=== PATIENT | male | born 1940 | race Caucasian/White ===

== ENCOUNTER → 2016-09-30 | Outpatient (CLI) | payer BC ==
[~2016-09-30] MED LIST: ALPR-411 PO; ASPI81TA28 PO; ATOR-22 PO; BNT10 PO; CARI350T28 PO; DICY10CA12 PO; FLM4 PO; IBUP-103 PO; METO25TA3 PO; MULT-190 PO; MULT-513 PO; PRLSR20 PO; PSYL48.59 PO; SALI0.6517 NAE; TAMS0.4C38 PO; VGR50 PO; VIAGRA PO
[2016-09-30 10:18] LABS: BASO % 0.3 %; BASO ABS # 0.03 K/uL (0-0.2); COMPLETE YES; EOS % 2.3 %; HEMATOCRIT 48.3 % (42-52); IG% 0.3 %; LYMPH % 23.7 %; LYMPH ABS # 2.15 K/uL (1.2-3.4); MEAN CORPUSCULAR HEMOGLOBIN 33.5 pg (25-34); MEAN CORPUSCULAR HGB CONC 36.4 g/dl (32-36); MEAN PLATELET VOLUME 12.3 fL (7.4-10.4); MONO % 9.2 %; NEUT % 64.2 %; PLATELET COUNT 174 K/uL (130-400); RED BLOOD COUNT 5.25 M/uL (4.7-6.1); WHITE BLOOD COUNT 9.07 K/uL (4.8-10.8)
[2016-09-30 10:31] LABS: ALT/SGPT 41 U/L (12-78); AST/SGOT 17 U/L (15-37); BLOOD UREA NITROGEN 13 mg/dl (7-18); BUN/CREATININE RATIO 14.8 (10-20); CALCIUM 9.3 mg/dl (8.5-10.1); CARBON DIOXIDE 28 mmol/L (21-32); CHLORIDE 106 mmol/L (98-107); CHOLESTEROL 149 mg/dl (0-200); CREATININE 0.88 mg/dl (0.60-1.40); GLUCOSE 135 mg/dl (70-99); POTASSIUM 4.5 mmol/L (3.5-5.1); SODIUM 142 mmol/L (136-145)
[2016-09-30 10:34] LABS: CHOLESTEROL/HDL RATIO 3.7; HDL CHOLESTEROL 40 mg/dl; LDL CHOLESTEROL CALCULATED 88 mg/dl; TRIGLYCERIDES 106 mg/dl (0-150); VERY LOW DENSITY LIPOPROT CALC 21 mg/dl
[2016-09-30 11:48] LABS: ESTIMATED AVERAGE GLUCOSE 123 mg/dl; HA1C FLAG Normal (Normal)
== END | disposition home or self-care (01) ==
LOC: C.LAB1850 09:07
PROVIDERS: ATTEND Internal Medicine
DX: E78.00 Pure hypercholesterolemia, unspecified (principal); R73.9 Hyperglycemia, unspecified

== ENCOUNTER → 2016-10-01 | Outpatient (CLI) | payer BC ==
--- NOTE | 2016-10-01 14:47 | DIAGNOSTIC IMAGING REPORT ---
CT HEAD COMBO CT DOSE: 1718.52 mGycm TECHNIQUE: Noncontrast images were obtained through the brain in the axial plane. The sequence was repeated following administration of 119 Optiray 320. HISTORY: Dizziness and vestibular hypofunction. COMPARISON: 2008, 2007. FINDINGS: No intra or extra-axial mass lesions are visualized. There is no CT evidence of acute cortical infarction. There is no evidence of midline shift. There is no acute hemorrhage. No calvarial fractures are visualized. There are moderate, progressive white matter hypodensities likely on a small vessel basis. There is mild ventricular prominence, proportional to degree of volume loss. There is no evidence of acute sinusitis There are no pathologically enhancing masses. 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 There are no findings to indicate dural venous sinus thrombosis. IMPRESSION: 1. Moderate, progressive white matter disease likely a small vessel basis 2. Pontine DVA 3. No evidence of intracranial mass Electronically signed by: Omar Valiente M.D. 10/01/2016 2:46 PM Dictated Date/Time: 10/01/2016 2:41 PM
== END | disposition home or self-care (01) ==
LOC: C.CTS 14:04
PROVIDERS: ATTEND Internal Medicine
DX: H83.2X3 Labyrinthine dysfunction, bilateral (principal); R42 Dizziness and giddiness; R90.82 White matter disease, unspecified; Q28.3 Other malformations of cerebral vessels

== ENCOUNTER → 2017-04-06 | Outpatient (CLI) | payer BC ==
[2017-04-06 09:59] LABS: BASO % 0.2 %; BASO ABS # 0.02 K/uL (0-0.2); COMPLETE YES; HEMATOCRIT 47.2 % (42-52); IG% 0.2 %; LYMPH % 27.4 %; LYMPH ABS # 2.29 K/uL (1.2-3.4); MEAN CELL VOLUME 93.3 fL (80-100); MEAN CORPUSCULAR HEMOGLOBIN 33.8 pg (25-34); MEAN CORPUSCULAR HGB CONC 36.2 g/dl (32-36); MEAN PLATELET VOLUME 12.6 fL (7.4-10.4); MONO % 8.1 %; NEUT % 62.1 %; PLATELET COUNT 140 K/uL (130-400); RED BLOOD COUNT 5.06 M/uL (4.7-6.1); WHITE BLOOD COUNT 8.35 K/uL (4.8-10.8)
[2017-04-06 10:26] LABS: URINE APPEARANCE CLEAR (CLEAR); URINE BILIRUBIN NEG (NEG); URINE COLOR YELLOW; URINE EPITHELIAL CELL AUTO 0-5 /lpf (0-5); URINE NITRITE NEG (NEG); URINE SPECIFIC GRAVITY 1.016 (1.000-1.030); UROBILINOGEN NEG (NEG)
[2017-04-06 10:33] LABS: MANUAL MICROSCOPIC REQUIRED? NO; REVIEW REQ? NO
[2017-04-06 10:53] LABS: ALT/SGPT 49 U/L (12-78); AST/SGOT 20 U/L (15-37); BLOOD UREA NITROGEN 20 mg/dl (7-18); BUN/CREATININE RATIO 22.4 (10-20); CALCIUM 8.9 mg/dl (8.5-10.1); CARBON DIOXIDE 30 mmol/L (21-32); CHLORIDE 105 mmol/L (98-107); CREATININE 0.87 mg/dl (0.60-1.40); GLUCOSE 134 mg/dl (70-99); POTASSIUM 4.5 mmol/L (3.5-5.1); SODIUM 140 mmol/L (136-145)
[2017-04-06 11:04] LABS: ESTIMATED AVERAGE GLUCOSE 128 mg/dl; HA1C FLAG Normal (Normal)
[2017-04-06 11:05] LABS: CHOLESTEROL 182 mg/dl (0-200); CHOLESTEROL/HDL RATIO 4.4; HDL CHOLESTEROL 41 mg/dl; LDL CHOLESTEROL CALCULATED 106 mg/dl; TRIGLYCERIDES 176 mg/dl (0-150); VERY LOW DENSITY LIPOPROT CALC 35 mg/dl
--- NOTE | 2017-04-10 12:18 | CODING QUERY MEDICAL NECESSITY ---
SUPPORTING DIAGNOSIS NEEDED A supporting diagnosis is required for the test/procedure performed on this patient in order for us to be reimbursed by the patient's insurance. Please provide a supporting diagnosis for the following test/procedure listed below next to the test name along with your signature. *If there is no additional diagnosis for this patient that would support the following test/procedure please document that below next to the test/procedure. Test(s)/Procedure(s) that require a supporting diagnosis: * HEMOGLOBIN A1C DIAGNOSIS: Provider Signature: Date: Thank you Alysha [facility] [employer] Once completed, please kindly fax back to [phone] For questions please call [phone]
== END | disposition home or self-care (01) ==
LOC: C.LAB1850 09:05
PROVIDERS: ATTEND Internal Medicine
DX: E78.00 Pure hypercholesterolemia, unspecified (principal)

== ENCOUNTER → 2017-06-11 | Outpatient (CLI) | payer BC ==
[~2017-06-11] MED LIST changes: +OPTIRAY 320 IV PRN
--- NOTE | 2017-06-11 10:08 | DIAGNOSTIC IMAGING REPORT ---
CT SCAN OF THE BRAIN COMBO CLINICAL HISTORY: Headache. COMPARISON STUDY: CT of the brain dated 10/01/2016. TECHNIQUE: Unenhanced axial CT scan of the brain is performed from the vertex to the skull base before and following the IV administration of 93 cc of Optiray 320. IV contrast was administered without complication. CT DOSE: 1228.53 mGy.cm FINDINGS: Brain parenchyma: There are age-related involutional changes noting moderate to advanced subcortical and periventricular microangiopathic change. There is no hemorrhage, mass effect, or evidence of acute territorial ischemia by CT criteria. No enhancing mass lesion is identified on the postcontrast images. A development venous anomaly is incidentally noted in the mark. Edmond-white matter is preserved. No extra-axial fluid collection is seen. Ventricles, sulci, cisterns: Prominent secondary to involutional change. Intracranial vasculature: There is atherosclerotic calcification of the cavernous carotid and vertebral arteries. Calvarium: Unremarkable. Sinuses and mastoids: Trace mucosal thickening is seen in the maxillary antra. The visualized paranasal sinuses are otherwise clear. The mastoid air cells are well pneumatized. Orbits: The bony orbits are grossly intact. IMPRESSION: Senescent changes as above with no hemorrhage, enhancing mass, or evidence of acute territorial ischemia by CT criteria. Electronically signed by: Alejandro Singh M.D. 06/11/2017 10:07 AM Dictated Date/Time: 06/11/2017 10:04 AM
== END | disposition home or self-care (01) ==
LOC: C.CTS 09:23
PROVIDERS: ATTEND Internal Medicine
DX: R51 Headache (principal); I67.2 Cerebral atherosclerosis

== ENCOUNTER → 2017-07-20 | Day surgery (SDC) | payer BC ==
[2017-06-22 09:04] VITALS: Ht 170.2 cm; Wt 113.6 kg
[~2017-07-20] VITALS: Ht 170.2 cm; Wt 113.6 kg
[~2017-07-20] MED LIST changes: +500ML BSS 0.3ML EPI 1:1000PF IRRIG ONE; +ACETAMINOPHEN 325 MG TAB PO PRN; +AMVISC PLUS 0.8ML SYRINGE INT OCU ONE; +ATROPINE SULFATE 0.1 MG/ML 5ML SYR IV PRN; -BNT10 PO; +BRIMONIDINE TART 0.2% OP SOLN PER DROP CHARGE ONE; +BROM0.0911 OPR; +BSS FLUSH ONE; -CARI350T28 PO; +CIPR0.3S OPR; +ENDOCOAT 0.85ML SYRINGE INT OCU ONE; +EpHEDrine SULFATE INJ 50 MG/ML AMP IV PRN; +EpINEphrine INJ 1MG/ML AMP 1 MG/ML AMP ONE; -FLM4 PO; +LACTATED RINGER'S 1000ML 500 ML IV SCH; +LIDOCAINE 4% OP SOLN DROP CHARGE ONE; +LIDOCAINE 4% OP SOLN DROP CHARGE OPR SCH; +LIDOCAINE HCL 1% MPF 2 ML VIAL ONE; +MIDAZOLAM HCL 1 MG/ML 2ML VIAL ONE; +MIX: 3ML BSS AND 1ML EPI(PF) TOP ONE; +MOXIFLOXACIN OPH SOLN PER DROP CHARGE ONE; +ONDANSETRON INJ 2 MG/ML 2 ML VIAL IV PRN; -OPTIRAY 320 IV PRN; +POVIDONE-IODINE OP SOLN 30 ML BTL ONE; +PRED1SUS3 OPR; +PROPARACAINE 0.5% OP SOLN PER DROP CHARGE OPR SCH; +PROPARACAINE HCL 0.5% OP SOLN 15 ML BTL OPR ONE; -SALI0.6517 NAE; +TOBRAMYCIN/DEXAMETHASONE OPH OINT PER APPLN CHARGE ONE; -VIAGRA PO
[2017-07-20] MEDS: PHENYLEPHRINE HCL 2.5% OP SOLN PER DROP CHARGE OPR SCH ×2 (10:40→10:45)
[2017-07-20] MEDS: TROPICAMIDE 1% OP SOLN PER DROP CHARGE OPR SCH ×2 (10:41→10:46)
[2017-07-20] MEDS: CYCLOPENTOLATE HCL 1% OP SOLN PER DROP CHARGE OPR SCH ×2 (10:42→10:47)
[2017-07-20] MEDS: KETOROLAC 0.5% OP SOLN PER DROP CHARGE OPR SCH ×2 (10:43→10:48)
[2017-07-20] MEDS: MOXIFLOXACIN OPH SOLN PER DROP CHARGE OPR SCH ×2 (10:44→10:54)
--- NOTE | 2017-07-20 11:53 | History & Physical Bridge - [place] ---
H&P Re-Evaluation Bridge Note: I have examined the patient, reviewed the History & Physical and in the interval since the performance of the History & Physical I have noted the following changes of clinical significance: No changes noted
--- NOTE | 2017-07-20 13:17 | Discharge Instructions-SurgCtr ---
Discharge Instructions Date of Service Jul 20, 2017. Visit Reason for Visit: Cataract Right Eye Discharge Discharge Diagnosis / Problem: cataract right eye Discharge Goals Goal(s): Improve function Activity Recommendations Activity Limitations: per Instructions/Follow-up section Lifting Limitations: no more than 5 pounds Anesthesia . Post Anesthesia Instructions: If you have had General Anesthesia or IV Sedation: * Do not drive today. * Resume driving when surgeon permits. * Do not make important decisions or sign legal documents today. * Call surgeon for: 1. Temperature elevations greater than 101 degrees F. 2. Uncontrollable pain. 3. Excessive bleeding. 4. Persistent nausea and vomiting. 5. Medication intolerance (nausea, vomiting or rash). * For nausea and vomiting use only clear liquids such as: tea, soda, bouillon until nausea subsides, then gradually increase diet as tolerated. * If you have any concerns or questions, call your surgeon's office. If physician is unavailable and it is an emergency, call 911 or go to the nearest emergency room. . Instructions / Follow-Up Instructions / Follow-Up ACTIVITY RECOMMENDATIONS: * Light activities * You may walk outside, read, watch television. * Mild irritation and blurred vision are common for the first few days, redness around the white part of the eye is common. MEDICATIONS: Resume previous medications unless instructed otherwise by your surgeon. Eye drops (today and tomorrow): Cipro - one drop in operative eye every 2 hours while awake Prednisolone 1% - one drop in operative eye every 2 hours while awake Bromfenac - one drop in operative eye once daily SPECIAL CARE INSTRUCTIONS: * If any problems or concerns, please call Dr. Downs's office at . * Keep plastic shield taped over eye to sleep at night. * Keep plastic shield taped over eye except to administer eye drops. * Keep plastic shield on until office visit the following day. FOLLOW UP VISIT: Follow-up with Dr. Downs in the [place] office as scheduled. If not already scheduled, please call the office at . Diet Recommendations Home Diet: resume previous diet Procedures Procedures Performed: Right Cataract Phacoemulsification With Intraocular Lens Implant; Toric Lens Pending Studies Studies pending at discharge: no Medical Emergencies . Who to Call and When: Medical Emergencies: If at any time you feel your situation is an emergency, please call 911 immediately. . Non-Emergent Contact Non-Emergency issues call your: Final Tester . . "Provider Documentation" section prepared by Kenneth Downs. .
--- NOTE | 2017-07-20 13:18 | [facility] Post Operative Brief Note ---
Immediate Operative Summary Operative Date Jul 20, 2017. Pre-Operative Diagnosis Right Eye Cataract Post-Operative Diagnosis Same Procedure(s) Performed Right Cataract Phacoemulsification With Intraocular Lens Implant; Toric Lens Surgeon Dr Downs Salesperson Burial Needs Surgeon(s) None Estimated Blood Loss 0ml Findings cataract right eye Fluids (cc crystalloids) see anesthesia record Specimens None Drains none Anesthesia local with sedation Complication(s) None Disposition Recovery Room / PACU
[2017-07-20 13:20] VITALS: TEMP 36.9
--- NOTE | 2017-07-20 13:35 | OPERATIVE REPORT ---
DATE OF OPERATION: 07/20/2017 PREOPERATIVE DIAGNOSES: Cataract and astigmatism, right eye. POSTOPERATIVE DIAGNOSES: Same. PROCEDURES PERFORMED: Phacoemulsification cataract extraction with Toric intraocular lens placement with the use of femtosecond laser and a Malyugin ring, right eye. COMPLICATIONS: None. ESTIMATED BLOOD LOSS: None. ANESTHESIA: Local with sedation. DESCRIPTION OF PROCEDURE: After an informed consent was obtained in the holding area, the patient was taken to the femtosecond laser room, where the right eye was docked with the laser. The capsulorrhexis and prechop of the lens was performed by the femtosecond laser. The patient was then undocked from the laser and taken to the operating room, where cardiac monitoring leads and oxygen by nasal cannula was administered by anesthesia. Gentle IV sedation was given and the patient's right eye was prepped and draped in the usual sterile fashion. A wire lid speculum was placed in the right eye and the operating microscope was swung into position. Using 0.12 forceps and a supersharp blade, a paracentesis port was made at the 11 o'clock position of the patient's right eye. 1% nonpreserved lidocaine was injected into the anterior chamber for anesthesia. A mixture of nonpreserved epinephrine and 3 mL of BSS was then injected into the eye to aid with pupillary dilation in this small pupil patient. A 2.0-mm keratome blade was then used to make a shelved clear cornea incision at the 9 o'clock position of the patient's right eye. The anterior chamber was then filled with EndoCoat and Amvisc. The pupil was rather small, so Malyugin ring was injected into the eye to widen the pupil. The premade capsulorrhexis was then removed from the eye and hydrodissection cannula was used to hydrodissect the lens nucleus away from the capsular bag. The phacoemulsification handpiece was then used in a stop and chop fashion to remove the lens nucleus. Irrigation aspiration handpiece was then used to remove the residual cortical material. The eye was then filled with Amvisc. The main incision enlarged slightly and an ARIANA VHG807, 22.0 Diopter intraocular lens was injected into the capsular bag. It was aligned along the 6-degree axis with dior made in the preop. The Malyugin ring was then removed from the eye. The primary incision was hydrated and irrigation-aspiration handpiece was used to remove the viscoelastic material from the eye. The wounds were noted to be watertight. The wire lid speculum was removed from the eye. Vigamox, brimonidine and TobraDex ointment were placed on the eye and the eye was shielded. The patient tolerated the procedure well and was taken to recovery area in stable condition. I attest to the content of the Intraoperative Record and any orders documented therein. Any exception s are noted below.
--- NOTE | 2017-07-20 13:36 | Anesthesia Progress Nt - [facility] ---
Anesthesia Post Op Note Date & Time Jul 20, 2017 at 13:36 Vital Signs Pain Intensity: 0 Vital Signs Past 12 Hours Date Time Temp Pulse Resp B/P (MAP) Pulse Ox O2 Delivery O2 Flow Rate FiO2 07/20/17 13:20 36.9 78 16 154/92 (112) 95 Room Air 07/20/17 12:42 81 18 147/89 97 07/20/17 12:32 88 18 164/101 97 07/20/17 10:35 36.5 94 16 154/88 (110) 95 Room Air Notes Mental Status: alert / awake / arousable, participated in evaluation Pt Amnestic to Procedure: Yes Nausea / Vomiting: adequately controlled Pain: adequately controlled Airway Patency, RR, SpO2: stable & adequate BP & HR: stable & adequate Hydration State: stable & adequate Anesthetic Complications: no major complications apparent
[2017-07-20 13:37] VITALS: BP 130/76; PULSE 78; O2SAT 97
== END | disposition home or self-care (01) ==
LOC: X.SURG 10:00
PROVIDERS: ATTEND Ophthalmology
DX: H25.11 Age-related nuclear cataract, right eye (principal); I51.9 Heart disease, unspecified; E78.00 Pure hypercholesterolemia, unspecified; Z95.0 Presence of cardiac pacemaker; Z79.899 Other long term (current) drug therapy; Z87.891 Personal history of nicotine dependence; Z79.82 Long term (current) use of aspirin

== ENCOUNTER → 2017-08-31 | Day surgery (SDC) | payer BC ==
[2017-08-18 09:01] VITALS: Ht 170.2 cm; Wt 112.7 kg
[~2017-08-31] VITALS: Ht 170.2 cm; Wt 112.7 kg
[~2017-08-31] MED LIST changes: +BRIMONIDINE TARTRATE 0.2% 5ML ONE; -BROM0.0911 OPR; -CIPR0.3S OPR; +LIDOCAINE 4% OP SOLN DROP CHARGE OPL SCH; -LIDOCAINE 4% OP SOLN DROP CHARGE OPR SCH; -PRED1SUS3 OPR; +PROPARACAINE 0.5% OP SOLN PER DROP CHARGE OPL SCH; -PROPARACAINE 0.5% OP SOLN PER DROP CHARGE OPR SCH; -PROPARACAINE HCL 0.5% OP SOLN 15 ML BTL OPR ONE
[2017-08-31] MEDS: PHENYLEPHRINE HCL 2.5% OP SOLN PER DROP CHARGE OPL SCH ×2 (09:19→09:24)
[2017-08-31] MEDS: TROPICAMIDE 1% OP SOLN PER DROP CHARGE OPL SCH ×2 (09:20→09:25)
[2017-08-31] MEDS: CYCLOPENTOLATE HCL 1% OP SOLN PER DROP CHARGE OPL SCH ×2 (09:21→09:26)
[2017-08-31] MEDS: KETOROLAC 0.5% OP SOLN PER DROP CHARGE OPL SCH ×2 (09:22→09:27)
[2017-08-31] MEDS: MOXIFLOXACIN OPH SOLN PER DROP CHARGE OPL SCH ×2 (09:23→09:29)
--- NOTE | 2017-08-31 10:53 | Discharge Instructions-SurgCtr ---
Discharge Instructions Date of Service Aug 31, 2017. Visit Reason for Visit: Cataract Left Eye Discharge Discharge Diagnosis / Problem: cataract left eye Discharge Goals Goal(s): Improve function Medications Stopped Medications Name(s): Only took two pills this morning. Activity Recommendations Activity Limitations: per Instructions/Follow-up section Lifting Limitations: no more than 5 pounds Anesthesia . Post Anesthesia Instructions: If you have had General Anesthesia or IV Sedation: * Do not drive today. * Resume driving when surgeon permits. * Do not make important decisions or sign legal documents today. * Call surgeon for: 1. Temperature elevations greater than 101 degrees F. 2. Uncontrollable pain. 3. Excessive bleeding. 4. Persistent nausea and vomiting. 5. Medication intolerance (nausea, vomiting or rash). * For nausea and vomiting use only clear liquids such as: tea, soda, bouillon until nausea subsides, then gradually increase diet as tolerated. * If you have any concerns or questions, call your surgeon's office. If physician is unavailable and it is an emergency, call 911 or go to the nearest emergency room. . Instructions / Follow-Up Instructions / Follow-Up ACTIVITY RECOMMENDATIONS: * Light activities * You may walk outside, read, watch television. * Mild irritation and blurred vision are common for the first few days, redness around the white part of the eye is common. MEDICATIONS: Resume previous medications unless instructed otherwise by your surgeon. Eye drops (today and tomorrow): Cipro - one drop in operative eye every 2 hours while awake Prednisolone 1% - one drop in operative eye every 2 hours while awake Bromfenac - one drop in operative eye once daily SPECIAL CARE INSTRUCTIONS: * If any problems or concerns, please call Dr. Downs's office at . * Keep plastic shield taped over eye to sleep at night. * Keep plastic shield taped over eye except to administer eye drops. * Keep plastic shield on until office visit the following day. FOLLOW UP VISIT: Follow-up with Dr. Downs in the [place] office as scheduled. If not already scheduled, please call the office at . Diet Recommendations Home Diet: resume previous diet Procedures Procedures Performed: Left Cataract Phacoemulsification with Intraocular Lens Implant Pending Studies Studies pending at discharge: no Medical Emergencies . Who to Call and When: Medical Emergencies: If at any time you feel your situation is an emergency, please call 911 immediately. . Non-Emergent Contact Non-Emergency issues call your: Ballpoint Pen Assembly Machine Operator . . "Provider Documentation" section prepared by Kenneth Downs. .
[2017-08-31 10:54] VITALS: TEMP 36.9
--- NOTE | 2017-08-31 10:56 | [facility] Operative Report ---
Operative Report Operative Date Aug 31, 2017. Pre-Operative Diagnosis Left Eye Cataract Post-Operative Diagnosis Same Procedure(s) Performed Left Cataract Phacoemulsification with Intraocular Lens Implant Surgeon Dr. 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 Gentle IV sedation was given, and the patient's left eye was prepped and draped in usual sterile fashion. A wire lid speculum was placed into the left eye and the operating microscope was swung into position. Using 0.12 forceps and a Supersharp blade a paracentesis port was made 2 o'clock hours away from the 3 o'clock position of the patient's left eye. 1% non-preserved Lidocaine was then injected into the anterior chamber for anesthesia. A 2.0 mm keratotome blade was then used to make a shelved clear corneal incision at the 3 o'clock position of the left eye. Amvisc was injected into the anterior chamber and a cystotome and Utrata forceps were used to perform a curvilinear capsulorrhexis. BSS on a hydrodissection cannula was used to hydrodissect the lens nucleus away from the capsular bag. The phacoemulsification handpiece was then used in a stop and chop fashion to remove the lens nucleus. The iris repeatedly tried to exit the eye so flomax mixture was given and endocoat was replaced repeatedly during the case. The iris had to be swept into the eye repeatedly from with a Railroad spatula. The irrigation and aspiration handpiece was then used to remove the residual cortical material. Amvisc was injected into the capsular bag and anterior chamber and a [employer] MX60 23.0 Diopter intraocular lens was injected into the capsular bag. Irrigation and aspiration handpiece was used to remove the residual viscoelastic material. The wounds were hydrated and noted to be watertight. The wire lid speculum was removed from the eye. Vigamox, Brimonidine, and TobraDex ointment were placed on the eye and it was shielded. It should be noted that EndoCoat was used extensively during the case to protect the cornea endothelium. DISPOSITION: The patient tolerated the procedure well and was wheeled to the post anesthesia care unit in stable condition. I attest to the content of the Intraoperative Record and any orders documented therein. Any exceptions are noted below. I attest to the content of the Intraoperative Record and any orders documented therein. Any exceptions are noted below.
--- NOTE | 2017-08-31 11:13 | Anesthesia Progress Nt - [facility] ---
Anesthesia Post Op Note Date & Time Aug 31, 2017 at 11:12 Vital Signs Pain Intensity: 0 Vital Signs Past 12 Hours Date Time Temp Pulse Resp B/P (MAP) Pulse Ox O2 Delivery O2 Flow Rate FiO2 08/31/17 10:54 36.9 85 16 158/94 (115) 96 Room Air 08/31/17 09:08 36.5 80 20 131/75 (93) 95 Room Air Notes Mental Status: alert / awake / arousable, participated in evaluation Pt Amnestic to Procedure: Yes Nausea / Vomiting: adequately controlled Pain: adequately controlled Airway Patency, RR, SpO2: stable & adequate BP & HR: stable & adequate Hydration State: stable & adequate Anesthetic Complications: no major complications apparent
[2017-08-31 11:19] VITALS: BP 135/83; PULSE 77; O2SAT 95
== END | disposition home or self-care (01) ==
LOC: X.SURG 08:43
PROVIDERS: ATTEND Ophthalmology
DX: H25.12 Age-related nuclear cataract, left eye (principal); E78.00 Pure hypercholesterolemia, unspecified; I51.9 Heart disease, unspecified; Z95.0 Presence of cardiac pacemaker; Z87.891 Personal history of nicotine dependence; Z79.899 Other long term (current) drug therapy

== ENCOUNTER → 2017-10-27 | Outpatient (CLI) | payer BC ==
[~2017-10-27] MED LIST changes: -500ML BSS 0.3ML EPI 1:1000PF IRRIG ONE; -ACETAMINOPHEN 325 MG TAB PO PRN; -AMVISC PLUS 0.8ML SYRINGE INT OCU ONE; -ATROPINE SULFATE 0.1 MG/ML 5ML SYR IV PRN; -BRIMONIDINE TART 0.2% OP SOLN PER DROP CHARGE ONE; -BRIMONIDINE TARTRATE 0.2% 5ML ONE; -BSS FLUSH ONE; -ENDOCOAT 0.85ML SYRINGE INT OCU ONE; -EpHEDrine SULFATE INJ 50 MG/ML AMP IV PRN; -EpINEphrine INJ 1MG/ML AMP 1 MG/ML AMP ONE; -LACTATED RINGER'S 1000ML 500 ML IV SCH; -LIDOCAINE 4% OP SOLN DROP CHARGE ONE; -LIDOCAINE 4% OP SOLN DROP CHARGE OPL SCH; -LIDOCAINE HCL 1% MPF 2 ML VIAL ONE; -MIDAZOLAM HCL 1 MG/ML 2ML VIAL ONE; -MIX: 3ML BSS AND 1ML EPI(PF) TOP ONE; -MOXIFLOXACIN OPH SOLN PER DROP CHARGE ONE; -ONDANSETRON INJ 2 MG/ML 2 ML VIAL IV PRN; -POVIDONE-IODINE OP SOLN 30 ML BTL ONE; -PROPARACAINE 0.5% OP SOLN PER DROP CHARGE OPL SCH; -TOBRAMYCIN/DEXAMETHASONE OPH OINT PER APPLN CHARGE ONE
[2017-10-27 09:36] LABS: BASO % 0.3 %; BASO ABS # 0.03 K/uL (0-0.2); EOS % 2.1 %; EOS ABS # 0.19 K/uL (0-0.5); HEMATOCRIT 47.5 % (42-52); HEMOGLOBIN 17.3 g/dL (14.0-18.0); IG# 0.03 K/uL (0.00-0.02); LYMPH % 23.4 %; LYMPH ABS # 2.07 K/uL (1.2-3.4); MEAN CELL VOLUME 94.4 fL (80-100); MEAN CORPUSCULAR HEMOGLOBIN 34.4 pg (25-34); MEAN CORPUSCULAR HGB CONC 36.4 g/dl (32-36); MEAN PLATELET VOLUME 12.7 fL (7.4-10.4); MONO % 9.6 %; MONO ABS # 0.85 K/uL (0.11-0.59); NEUT % 64.3 %; NEUT ABS # 5.68 K/uL (1.4-6.5); PLATELET COUNT 141 K/uL (130-400); RED CELL DISTRIBUTION WIDTH CV 13.8 % (11.5-14.5); RED CELL DISTRIBUTION WIDTH SD 47.3 fL (36.4-46.3); WHITE BLOOD COUNT 8.85 K/uL (4.8-10.8)
[2017-10-27 09:46] LABS: HEMOGLOBIN A1C 6.4 % (4.5-5.6)
[2017-10-27 10:02] LABS: ALT/SGPT 32 U/L (12-78); AST/SGOT 19 U/L (15-37); BLOOD UREA NITROGEN 13 mg/dl (7-18); CALCIUM 8.9 mg/dl (8.5-10.1); CARBON DIOXIDE 27 mmol/L (21-32); CHOLESTEROL 147 mg/dl (0-200); GLUCOSE 129 mg/dl (70-99); POTASSIUM 4.5 mmol/L (3.5-5.1); SODIUM 141 mmol/L (136-145)
[2017-10-27 10:12] LABS: LDL CHOLESTEROL CALCULATED 77 mg/dl
== END | disposition home or self-care (01) ==
LOC: C.LAB1850 08:37
PROVIDERS: ATTEND Internal Medicine
DX: E78.00 Pure hypercholesterolemia, unspecified (principal); R73.9 Hyperglycemia, unspecified; I44.1 Atrioventricular block, second degree; I42.9 Cardiomyopathy, unspecified; K21.9 Gastro-esophageal reflux disease without esophagitis

== ENCOUNTER 2018-09-29 18:57 | Inpatient (IN) ==
[2018-09-29] MEDS ORDERED: ACETAMINOPHEN 500 MG TAB PO STA (19:12)
[2018-09-29 19:29] LABS: Basophils # (auto) 0.02 K/uL (0-0.2); Basophils % (auto) 0.2 %; Eosinophils # (auto) 0.02 K/uL (0-0.5); Eosinophils % (auto) 0.2 %; Hemoglobin 16.6 g/dL (14.0-18.0); Immature Granulocytes # (auto) 0.02 K/uL (0.00-0.02); Immature Granulocytes % (auto) 0.2 %; Lymphocytes # (auto) 0.96 K/uL (1.2-3.4); Lymphocytes % (auto) 10.3 %; Mean Corpuscular Hgb Conc 35.3 g/dL (32-36); Mean Corpuscular Volume 94.4 fL (80-100); Mean Platelet Volume 12.2 fL (7.4-10.4); Monocytes # (auto) 0.94 K/uL (0.11-0.59); Monocytes % (auto) 10.1 %; Neutrophils # (auto) 7.38 K/uL (1.4-6.5); Platelet Count 142 K/uL (130-400); RDW Coefficient of Variation 13.9 % (11.5-14.5); RDW Standard Deviation 47.6 fL (36.4-46.3); Red Blood Count 4.98 M/uL (4.7-6.1); White Blood Count 9.34 K/uL (4.8-10.8)
[2018-09-29 19:37] LABS: Partial Thromboplastin Ratio 1.1; Partial Thromboplastin Time 29.8 Seconds (21.0-31.0); Prothrombin Time 10.5 Seconds (9.0-12.0)
--- NOTE | 2018-09-29 19:37 | XRay Report ---
XR chest 1V portable CLINICAL HISTORY: Sepsis dyspnea COMPARISON STUDY: 12/29/2013 FINDINGS: Moderate cardiomegaly. Prominent pulmonary vasculature. No well-defined focal infiltrate. P ermanent bipolar cardiac pacemaker. IMPRESSION: Moderate cardiomegaly. Pulmonary vascular congestion versus early congestive failure. The above report was generated using voice recognition software. It may contain grammatical, syntax or spelling errors. Electronically signed by: Walter Levine M.D. 09/29/2018 7:35 PM
--- NOTE | 2018-09-29 19:38 | Emergency Department Note ---
Entered by eKndra Novoa acting as a scribe for Evan Proctor DO History of Present Illness General Chief complaint: Shortness of Breath/Dyspnea Stated complaint: SOB, COUGH Source: patient and RN notes reviewed Mode of arrival: EMS Limitations: no limitations History of Present Illness Provider complaint: shortness of breath Onset (ago): day(s) (3-4) Location: chest Pain Consistency: + other (worsening) Maximum Pain Intensity: 10 Current Pain Intensity: 4 Quality: + other (SOB) Associated symptoms: + chest pain, + cough and + other (restless, imbalance); no nausea/vomiting Treatments prior to arrival: other (3 Nitro sprays) The patient is a 78 year old male who presents to the Emergency Room via EMS with complaints of a worsening shortness of breath that began 3-4 days ago. The patient states that he has been unable to sleep secondary to a persistent productive cough. The patient reports that he was evaluated by his PCP earlier for trouble with his balance and had his ears cleaned. The patient notes he had a fever at the office and states that he has a mild chest pain currently. The patient reports that he is currently prescribed a low-dose aspirin. He denies a history of pneumonia, heart failure or a heart attack but notes he has had a pacemaker in place for 11 years. RN notes show that the patient was given 3 Nitro sprays en route. Home Medications Home Medications Medication Instructions Recorded Confirmed Type alprazolam 0.5 mg PO BID 09/29/18 09/29/18 History aspirin 81 mg PO DAILY 09/29/18 09/29/18 History ibuprofen 400 mg PO Q4H PRN 09/29/18 09/29/18 History metoprolol succinate 25 mg PO NOW 09/29/18 09/29/18 History multivitamin 1 tab PO DAILY 09/29/18 09/29/18 History omeprazole 20 mg PO DAILY 09/29/18 09/29/18 History psyllium husk [Metamucil] 1 tbsp PO DAILY 09/29/18 09/29/18 History sildenafil [Viagra] 100 mg PO DAILY PRN 09/29/18 09/29/18 History tamsulosin [Flomax] 0.4 mg PO DAILY 09/29/18 09/29/18 History vit C,C-Qq-vcniy-lutein-zeaxan 1 tab PO AMHS 09/29/18 09/29/18 History [PreserVision AREDS-2] Allergies Allergy/AdvReac Type Severity Reaction Status Date / Time No Known Allergies Allergy Mild NONE Verified 09/29/18 23:03 Past Med/Surg History Medical History Pacemaker Surgical History History of permanent cardiac pacemaker placement (~2007) Social History Feels Safe at Home: Yes Smoking Status: Never smoker Review of Systems See HPI for pertinent positives & negatives. and A total of 10 systems reviewed and were otherwise negative Physical Exam Vital Signs Vital Signs - 24 hr 09/29/18 19:04 09/29/18 19:15 09/29/18 19:29 Temperature 38.1 C H Temperature Source Oral Sepsis Recent Fever Within 48 Hours No Sepsis New/Unexplained Change in Mental Status No Sepsis Action Taken by Nursing No Action Required Pulse Rate 97 H 112 H Pulse Rate [Left Finger] 95 H Pulse Rhythm [Left Finger] Regular Pulse Strength [Left Finger] Normal Respiratory Rate 30 H 35 H 24 Respiratory Effort / Characteristics Accessory Muscle Use Labored Short of Breath Spontaneous Labored Short of Breath Respiratory Depth Shallow Normal Respiratory Pattern Regular Blood Pressure 134/86 Blood Pressure [Right Arm] 151/82 H Blood Pressure Mean 102 Blood Pressure Mean [Right Arm] 105 Blood Pressure Position Lying Blood Pressure Position [Right Arm] Pulse Oximetry 98 98 97 Oxygen Delivery Method CPAP CPAP Oxygen Flow Rate Fraction of Inspired Oxygen 100 09/29/18 19:30 09/29/18 19:31 09/29/18 19:45 Temperature Temperature Source Sepsis Recent Fever Within 48 Hours Sepsis New/Unexplained Change in Mental Status Sepsis Action Taken by Nursing Pulse Rate 94 H 92 H Pulse Rate [Left Finger] 96 H Pulse Rhythm [Left Finger] Regular Pulse Strength [Left Finger] Normal Respiratory Rate 39 H 34 H 22 Respiratory Effort / Characteristics Accessory Muscle Use Labored Respiratory Depth Shallow Respiratory Pattern Rapid/Shallow Blood Pressure 158/80 H 163/86 H Blood Pressure [Right Arm] 150/80 H Blood Pressure Mean 106 111 Blood Pressure Mean [Right Arm] 103 Blood Pressure Position Blood Pressure Position [Right Arm] Sitting Pulse Oximetry 97 97 97 Oxygen Delivery Method Room Air Oxygen Flow Rate Fraction of Inspired Oxygen 09/29/18 20:01 09/29/18 20:16 09/29/18 20:31 Temperature Temperature Source Sepsis Recent Fever Within 48 Hours Sepsis New/Unexplained Change in Mental Status Sepsis Action Taken by Nursing Pulse Rate 88 90 90 Pulse Rate [Left Finger] Pulse Rhythm [Left Finger] Pulse Strength [Left Finger] Respiratory Rate 36 H 20 34 H Respiratory Effort / Characteristics Respiratory Depth Respiratory Pattern Blood Pressure 145/79 H 153/84 H 159/77 H Blood Pressure [Right Arm] Blood Pressure Mean 101 107 104 Blood Pressure Mean [Right Arm] Blood Pressure Position Blood Pressure Position [Right Arm] Pulse Oximetry 98 98 94 Oxygen Delivery Method Oxygen Flow Rate Fraction of Inspired Oxygen 09/29/18 20:45 09/29/18 21:01 09/29/18 21:15 Temperature 37.0 C Temperature Source Sepsis Recent Fever Within 48 Hours Sepsis New/Unexplained Change in Mental Status Sepsis Action Taken by Nursing Pulse Rate 87 88 86 Pulse Rate [Left Finger] Pulse Rhythm [Left Finger] Pulse Strength [Left Finger] Respiratory Rate 27 H 33 H 26 H Respiratory Effort / Characteristics Respiratory Depth Respiratory Pattern Blood Pressure 148/85 H 137/80 141/75 H Blood Pressure [Right Arm] Blood Pressure Mean 106 99 97 Blood Pressure Mean [Right Arm] Blood Pressure Position Blood Pressure Position [Right Arm] Pulse Oximetry 94 95 95 Oxygen Delivery Method Oxymask Oxymask Oxymask Oxygen Flow Rate Fraction of Inspired Oxygen 09/29/18 21:30 09/29/18 21:45 09/29/18 22:00 Temperature Temperature Source Sepsis Recent Fever Within 48 Hours Sepsis New/Unexplained Change in Mental Status Sepsis Action Taken by Nursing Pulse Rate 86 79 77 Pulse Rate [Left Finger] Pulse Rhythm [Left Finger] Pulse Strength [Left Finger] Respiratory Rate 22 17 23 Respiratory Effort / Characteristics Respiratory Depth Respiratory Pattern Blood Pressure 137/82 139/74 130/82 Blood Pressure [Right Arm] Blood Pressure Mean 100 95 98 Blood Pressure Mean [Right Arm] Blood Pressure Position Blood Pressure Position [Right Arm] Pulse Oximetry 95 95 96 Oxygen Delivery Method Oxymask Oxymask Oxymask Oxygen Flow Rate Fraction of Inspired Oxygen 09/29/18 22:16 09/29/18 22:50 09/29/18 23:30 Temperature Temperature Source Sepsis Recent Fever Within 48 Hours Sepsis New/Unexplained Change in Mental Status Sepsis Action Taken by Nursing Pulse Rate 83 84 Pulse Rate [Left Finger] 79 Pulse Rhythm [Left Finger] Pulse Strength [Left Finger] Respiratory Rate 27 H 18 18 Respiratory Effort / Characteristics Respiratory Depth Respiratory Pattern Blood Pressure 147/65 H 123/68 Blood Pressure [Right Arm] 143/74 H Blood Pressure Mean 92 Blood Pressure Mean [Right Arm] 97 Blood Pressure Position Blood Pressure Position [Right Arm] Pulse Oximetry 96 94 94 Oxygen Delivery Method Oxymask Oxymask Oxymask Oxygen Flow Rate 12 12 Fraction of Inspired Oxygen GENERAL: Patient is awake alert in no acute distress patient is resting comfortably and showing no signs of anxiety EYES: The conjunctivae are clear. The pupils are round and reactive. EARS, NOSE, MOUTH AND THROAT: The nose is without any evidence of any deformity. Mucous membranes are moist tongue is midline NECK: The neck is nontender and supple. RESPIRATORY: Shallow respirations were noted. There were diminished breath sounds noted throughout. There was tachypnea. Mild conversational dyspnea was noted. CARDIOVASCULAR: Regular rate and rhythm noted there no murmurs rubs or gallops normal S1 normal S2 GASTROINTESTINAL: The abdomen is soft. Bowel sounds are present in all quadrants. Abdomen is nontender MUSCULOSKELETAL/EXTREMITIES: There is no evidence of gross deformity full range of motion is noted in the hips and shoulders SKIN: There is no obvious evidence of any rash. Trace pedal edema was noted bilaterally. NEUROLOGIC: Patient is awake alert and oriented x3. Course 1908: Past medical records reviewed. The patient was evaluated in room C4, and a complete history and physical examination were performed. 2054: I reviewed the patient's case with Dr. Paez - [facility] Hospitalist. He will evaluate the patient for further management. 2110: The patient and his family were updated on results and are agreeable with the treatment plan. Administered Medications Discontinued Medications Acetaminophen (Tylenol) 1,000 mg PO NOW STA Stop: 09/29/18 19:13 Last Admin: 09/29/18 19:35 Dose: 1,000 mg Furosemide (Lasix) 40 mg IV NOW STA Stop: 09/29/18 19:44 Last Admin: 09/29/18 19:50 Dose: 40 mg Nitroglycerin (Nitro-Bid 2%) 0.5 inch EXT NOW ONE Stop: 09/29/18 20:56 Last Admin: 09/29/18 21:15 Dose: 0.5 inch Medical Decision Making Differential Diagnosis Differential diagnoses includes but is not limited to pneumonia, bronchitis, COPD/Asthma exacerbation, pneumothorax, pulmonary embolism, congestive heart failure, acute coronary syndrome. Medical Records Attestation: I reviewed the patient's medical records. Home Medications Current Medication List: was personally reviewed by me Laboratory Data Attestation: I reviewed the patient's lab results. Result diagrams: 09/29/18 19:05 09/29/18 19:05 Lab Results 09/29/18 09/29/18 09/29/18 Range/Units 19:05 19:05 19:05 WBC 9.34 (4.8-10.8) K/uL RBC 4.98 (4.7-6.1) M/uL Hgb 16.6 (14.0-18.0) g/dL Hct 47.0 (42-52) % MCV 94.4 (80-100) fL MCH 33.3 (25-34) pg MCHC 35.3 (32-36) g/dL RDW Std Deviation 47.6 H (36.4-46.3) fL RDW Coeff of Juli 13.9 (11.5-14.5) % Plt Count 142 (130-400) K/uL MPV 12.2 H (7.4-10.4) fL Immature Gran % (Auto) 0.2 % Neut % (Auto) 79.0 % Lymph % (Auto) 10.3 % Lynn % (Auto) 10.1 % Eos % (Auto) 0.2 % Baso % (Auto) 0.2 % Immature Gran # (Auto) 0.02 (0.00-0.02) K/uL Neut # (Auto) 7.38 H (1.4-6.5) K/uL Lymph # (Auto) 0.96 L (1.2-3.4) K/uL Lynn # (Auto) 0.94 H (0.11-0.59) K/uL Eos # (Auto) 0.02 (0-0.5) K/uL Baso # (Auto) 0.02 (0-0.2) K/uL ESR 28 H (0-14) mm/hr PT 10.5 (9.0-12.0) Seconds INR 1.0 (0.9-1.1) APTT 29.8 (21.0-31.0) Seconds PTT Ratio 1.1 VBG pH (7.36-7.41) VBG pCO2 (38-50) mmHg VBG pO2 mmHg VBG HCO3 mmol/L VBG O2 Saturation % VBG Base Excess mEq/L Barometric Pressure mm/Hg Sodium (136-145) mmol/L Potassium (3.5-5.1) mmol/L Chloride (98-107) mmol/L Carbon Dioxide (21-32) mmol/L Anion Gap (3-11) BUN (7-18) mg/dl Creatinine (0.6-1.4) mg/dl Est Cr Clr Drug Dosing ml/min Est GFR ( Amer) Est GFR (Non-Af Amer) BUN/Creatinine Ratio (10-20) Glucose (70-99) mg/dl Lactate (0.4-2.0) mmol/L Calcium (8.5-10.1) mg/dl Magnesium (1.8-2.4) mg/dl Total Bilirubin (0.2-1) mg/dl AST (15-37) U/L ALT (12-78) U/L Alkaline Phosphatase (45-117) U/L Troponin I (0-0.045) ng/ml C-Reactive Protein (0-0.29) mg/dl NT-Pro-B Natriuret Pep (0-1800) pg/ml Total Protein (6.4-8.2) gm/dl Albumin (3.4-5.0) gm/dl Globulin (2.5-4.0) gm/dl Albumin/Globulin Ratio (0.9-2) Urine Color Urine Appearance (Clear) Urine pH (4.5-7.5) Ur Specific [place] (1.000-1.030) Urine Protein (Negative) Urine Glucose (UA) (Negative) Urine Ketones (Negative) Urine Blood (Negative) Urine Nitrite (Negative) Urine Bilirubin (Negative) Urine Urobilinogen (Negative) Ur Leukocyte Esterase (Negative) Urine WBC (Auto) (0-5) /hpf Urine RBC (Auto) (0-4) /hpf U Hyaline Cast (Auto) (0-5) /lpf U Epithel Cells (Auto) (0-5) /lpf Urine Bacteria (Auto) (Negative) Influenza Type A (PCR) (Neg) Influenza Type B (PCR) (Neg) 09/29/18 09/29/18 09/29/18 Range/Units 19:05 19:29 19:42 WBC (4.8-10.8) K/uL RBC (4.7-6.1) M/uL Hgb (14.0-18.0) g/dL Hct (42-52) % MCV (80-100) fL MCH (25-34) pg MCHC (32-36) g/dL RDW Std Deviation (36.4-46.3) fL RDW Coeff of Juli (11.5-14.5) % Plt Count (130-400) K/uL MPV (7.4-10.4) fL Immature Gran % (Auto) % Neut % (Auto) % Lymph % (Auto) % Lynn % (Auto) % Eos % (Auto) % Baso % (Auto) % Immature Gran # (Auto) (0.00-0.02) K/uL Neut # (Auto) (1.4-6.5) K/uL Lymph # (Auto) (1.2-3.4) K/uL Lynn # (Auto) (0.11-0.59) K/uL Eos # (Auto) (0-0.5) K/uL Baso # (Auto) (0-0.2) K/uL ESR (0-14) mm/hr PT (9.0-12.0) Seconds INR (0.9-1.1) APTT (21.0-31.0) Seconds PTT Ratio VBG pH (7.36-7.41) VBG pCO2 (38-50) mmHg VBG pO2 mmHg VBG HCO3 mmol/L VBG O2 Saturation % VBG Base Excess mEq/L Barometric Pressure mm/Hg Sodium 137 (136-145) mmol/L Potassium 4.2 (3.5-5.1) mmol/L Chloride 107 (98-107) mmol/L Carbon Dioxide 27 (21-32) mmol/L Anion Gap 3.0 (3-11) BUN 16 (7-18) mg/dl Creatinine 0.97 (0.6-1.4) mg/dl Est Cr Clr Drug Dosing 74.9 ml/min Est GFR ( Amer) 85.7 Est GFR (Non-Af Amer) 73.9 BUN/Creatinine Ratio 16.0 (10-20) Glucose 160 H (70-99) mg/dl Lactate 1.1 (0.4-2.0) mmol/L Calcium 8.8 (8.5-10.1) mg/dl Magnesium 1.8 (1.8-2.4) mg/dl Total Bilirubin 0.5 (0.2-1) mg/dl AST 20 (15-37) U/L ALT 26 (12-78) U/L Alkaline Phosphatase 117 (45-117) U/L Troponin I 0.037 (0-0.045) ng/ml C-Reactive Protein 1.34 H (0-0.29) mg/dl NT-Pro-B Natriuret Pep 2637 H (0-1800) pg/ml Total Protein 7.7 (6.4-8.2) gm/dl Albumin 3.6 (3.4-5.0) gm/dl Globulin 4.1 H (2.5-4.0) gm/dl Albumin/Globulin Ratio 0.9 (0.9-2) Urine Color Urine Appearance (Clear) Urine pH (4.5-7.5) Ur Specific [place] (1.000-1.030) Urine Protein (Negative) Urine Glucose (UA) (Negative) Urine Ketones (Negative) Urine Blood (Negative) Urine Nitrite (Negative) Urine Bilirubin (Negative) Urine Urobilinogen (Negative) Ur Leukocyte Esterase (Negative) Urine WBC (Auto) (0-5) /hpf Urine RBC (Auto) (0-4) /hpf U Hyaline Cast (Auto) (0-5) /lpf U Epithel Cells (Auto) (0-5) /lpf Urine Bacteria (Auto) (Negative) Influenza Type A (PCR) Neg for Influ A (Neg) Influenza Type B (PCR) Neg for Influ B (Neg) 09/29/18 09/29/18 Range/Units 19:42 20:39 WBC (4.8-10.8) K/uL RBC (4.7-6.1) M/uL Hgb (14.0-18.0) g/dL Hct (42-52) % MCV (80-100) fL MCH (25-34) pg MCHC (32-36) g/dL RDW Std Deviation (36.4-46.3) fL RDW Coeff of Juli (11.5-14.5) % Plt Count (130-400) K/uL MPV (7.4-10.4) fL Immature Gran % (Auto) % Neut % (Auto) % Lymph % (Auto) % Lynn % (Auto) % Eos % (Auto) % Baso % (Auto) % Immature Gran # (Auto) (0.00-0.02) K/uL Neut # (Auto) (1.4-6.5) K/uL Lymph # (Auto) (1.2-3.4) K/uL Lynn # (Auto) (0.11-0.59) K/uL Eos # (Auto) (0-0.5) K/uL Baso # (Auto) (0-0.2) K/uL ESR (0-14) mm/hr PT (9.0-12.0) Seconds INR (0.9-1.1) APTT (21.0-31.0) Seconds PTT Ratio VBG pH 7.33 L (7.36-7.41) VBG pCO2 52 H (38-50) mmHg VBG pO2 141 mmHg VBG HCO3 27 mmol/L VBG O2 Saturation 98.8 % VBG Base Excess -0.4 mEq/L Barometric Pressure 727.5 mm/Hg Sodium (136-145) mmol/L Potassium (3.5-5.1) mmol/L Chloride (98-107) mmol/L Carbon Dioxide (21-32) mmol/L Anion Gap (3-11) BUN (7-18) mg/dl Creatinine (0.6-1.4) mg/dl Est Cr Clr Drug Dosing ml/min Est GFR ( Amer) Est GFR (Non-Af Amer) BUN/Creatinine Ratio (10-20) Glucose (70-99) mg/dl Lactate (0.4-2.0) mmol/L Calcium (8.5-10.1) mg/dl Magnesium (1.8-2.4) mg/dl Total Bilirubin (0.2-1) mg/dl AST (15-37) U/L ALT (12-78) U/L Alkaline Phosphatase (45-117) U/L Troponin I (0-0.045) ng/ml C-Reactive Protein (0-0.29) mg/dl NT-Pro-B Natriuret Pep (0-1800) pg/ml Total Protein (6.4-8.2) gm/dl Albumin (3.4-5.0) gm/dl Globulin (2.5-4.0) gm/dl Albumin/Globulin Ratio (0.9-2) Urine Color Yellow Urine Appearance Clear (Clear) Urine pH 5.0 (4.5-7.5) Ur Specific [place] 1.014 (1.000-1.030) Urine Protein 2+ H (Negative) Urine Glucose (UA) Negative (Negative) Urine Ketones Negative (Negative) Urine Blood Trace H (Negative) Urine Nitrite Negative (Negative) Urine Bilirubin Negative (Negative) Urine Urobilinogen Negative (Negative) Ur Leukocyte Esterase Trace H (Negative) Urine WBC (Auto) 1-5 (0-5) /hpf Urine RBC (Auto) 0-4 (0-4) /hpf U Hyaline Cast (Auto) 1-5 (0-5) /lpf U Epithel Cells (Auto) 5-10 H (0-5) /lpf Urine Bacteria (Auto) Negative (Negative) Influenza Type A (PCR) (Neg) Influenza Type B (PCR) (Neg) Imaging Data Radiologist's Impression: Radiology results as stated below per my review and the radiologist's interpretation: XR chest 1V portable CLINICAL HISTORY: Sepsis dyspnea COMPARISON STUDY: 12/29/2013 FINDINGS: Moderate cardiomegaly. Prominent pulmonary vasculature. No well- defined focal infiltrate. Permanent bipolar cardiac pacemaker. IMPRESSION: Moderate cardiomegaly. Pulmonary vascular congestion versus early congestive failure. The above report was generated using voice recognition software. It may contain grammatical, syntax or spelling errors. Electronically signed by: Walter Levine M.D. 09/29/2018 7:35 PM ECG Data Attestation: I personally reviewed and interpreted this ECG as follows: Indication: SOB/dyspnea Rate (beats per minute): 106 Rhythm: other (ventricular paced rhythm) Findings: + other (no kletsel dehe wintun beats) Comparison ECG Date: from (29-DEC-2013) Change: no significant change Blood Pressure Blood Pressure Findings: Elevated blood pressure Blood Pressure Disposition: further management by hospitalist JAY Michaud The patient is a 78-year-old male who presented to the emergency department by ambulance for an evaluation of shortness of breath. The patient states over the last few days he has been having difficulty sleeping because when he lies flat he becomes short of breath and starts to cough with a white sputum. The patient did not complain of fever but he was found to have an elevated temperature upon arrival. The patient's overall history and physical exam do appear to be more consistent with pulmonary edema. He was treated with Lasix as well as nitroglycerin paste. I discussed the patient's laboratory and radiographic studies with him and his family members. Because of his condition I also discussed his case with the on-call [facility] hospitalist group. They have agreed to evaluate the patient in the emergency department for further management and disposition. Impression & Plan Pulmonary edema, Hypoxia, Respiratory failure, Fever Discharge Plan Visit Data *Final* Discharge Date/Time: 09/29/18 23:30 Chief Complaint: Shortness of Breath/Dyspnea Stated Complaint: SOB, COUGH ED Provider: Evan Proctor Discharge Problem: Pulmonary edema, Hypoxia, Respiratory failure, Fever Patient Disposition: Admitted As Inpatient Discharge Instructions Interventions: ED Discharge Assessment Last Done: 09/29/18 23:30 The scribe's documentation has been prepared under my direction and personally reviewed by me in its entirety. I confirm that the note above accurately reflects all work, treatment, procedures, and medical decision making performed by me.
[2018-09-29] MEDS ORDERED: FUROSEMIDE 40 MG/4 ML VIAL IV STA (19:43)
[2018-09-29 19:54] LABS: Albumin Level 3.6 gm/dl (3.4-5.0); Calcium 8.8 mg/dl (8.5-10.1); Creatinine Clr Calc Pharmacy 74.9 ml/min; Est GFR (African American) 85.7; Est GFR (Non-African American) 73.9; Magnesium 1.8 mg/dl (1.8-2.4); Potassium 4.2 mmol/L (3.5-5.1)
[2018-09-29 19:59] LABS: Albumin Globulin Ratio 0.9 (0.9-2); Bilirubin,Total 0.5 mg/dl (0.2-1); C Reactive Protein 1.34 mg/dl (0-0.29); Globulin 4.1 gm/dl (2.5-4.0); Total Protein 7.7 gm/dl (6.4-8.2); Troponin I 0.037 ng/ml (0-0.045)
[2018-09-29 20:01] LABS: Base Excess VBG -0.4 mEq/L; Oxygen Saturation VBG 98.8 %; pH VBG 7.33 (7.36-7.41)
[2018-09-29 20:11] LABS: Influenza A virus by PCR Neg for Influ A (Neg); Influenza B virus by PCR Neg for Influ B (Neg)
[2018-09-29] MEDS ORDERED: NITROGLYCERIN 2% OINTMENT 30GM TUBE EXT ONE (20:55)
[2018-09-29 20:56] LABS: Appearance Urine Clear (Clear); Bacteria Urine Automated Negative (Negative); Bilirubin Urine Negative (Negative); Color Urine Yellow; Glucose Urine UA Negative (Negative); Ketones Urine Negative (Negative); Leukocyte Esterase Urine Trace (Negative); Nitrite Urine Negative (Negative); Protein Urine 2+ (Negative); Specific Gravity Urine 1.014 (1.000-1.030); Urobilinogen Urine Negative (Negative)
--- NOTE | 2018-09-29 23:21 | History & Physical Report ---
Date of Service September 29, 2018 Assessment & Plan (1) Shortness of breath: 78-year-old male was admitted on 29 September 2017 for progressive shortness of breath. Shortness of breath, pulmonary edema: Progressively worsening since . is noted mildly productive cough without known home fever but positive chills. Notes chest tightness without chest pain. Denies known history of underlying pulmonary disease. - Does have a history of idiopathic cardiomyopathy and a history of a Mobitz type II AV block: Followed by Dr. Vanegas cardiology. At home is on metoprolol succinate ER 25 mg daily, losartan 25 mg daily, and aspirin. --- Will continue these here. - Echocardiogram in March 2018 noted EF of 30-35%, LV SF is moderately reduced, moderate global hypokinesis of the left ventricle, and mild concentric LVH (no significant change from September 2016). - En route to hospital, EMS treated with NTG x 3. In ED, Tm 38.1, not tachycardic, initially tachypneic, and satting 94% on oximask. WBC 9, ESR 28, CRP 1.34, BNP 2637. VBG notes pH 7.33, CO2 52, bicarb 27. Negative for influenza A and B. EKG notes rate of 106 with an atrial sensed ventricularly paced rhythm. Chest x-ray and exam suggests pulmonary congestion due to pulmonary edema. - In ED, treated with Tylenol, Lasix 40 mg IV, and 1/2 inch of Nitropaste. Blood cultures sent. Patient says this helped his breathing. --- We will give a second dose of Lasix 40 mg IV. Cough: Likely related shortness of breath and pulmonary edema as above. Of note , patient was seen in pulmonary clinic on . There he had his right ear cerumen impaction cleared, was started on doxycycline twice daily for acute bronchitis plus sinusitis plus skin changes (? pimple) on his nose. --- Will continue his outpatient doxycycline, although it is not clear that he has a pneumonia. Proteinuria: As seen on admit UA. UA WBC and RBC unremarkable. Some epithelial cells. Cr 0.97. Can likely recheck in a couple weeks. Ongoing medical issues: - Hypercholesterolemia: At home is on Lipitor. Continue here. - Hyperglycemia: Recent hemoglobin A1c 5.9%. On admit glucose 160. Monitor for now. - Idiopathic cardiomyopathy and a history of a Mobitz type II AV block: Followed by Dr. Vanegas of cardiology as outpatient. At home is on metoprolol succinate ER 25 mg daily, losartan 25 mg daily, and aspirin. Continue here. - Urinary outlet obstruction, BPH: At home is on Flomax. Continue here. - Anxiety: At home is on Xanax. Continue here. - Irritable bowel syndrome and esophageal dysmotility: At home is on dicyclomine , Prilosec, and psyllium. Continue here. - Macular degeneration: Is on Ocuvite. Continue here. - Low back pain: Occasionally uses Advil. Continue here as needed. Code status: Full code Diet: Heart healthy. DVT prophy: Lovenox PT/OT: Deferred Disbo: Admit to MedSurg (2) Pulmonary edema: (3) Cough: (4) Proteinuria: (5) Hypercholesterolemia: (6) Idiopathic cardiomyopathy: (7) BPH (benign prostatic hyperplasia): (8) Anxiety: (9) Irritable bowel syndrome: (10) Esophageal dysmotility: (11) Macular degeneration: (12) Low back pain: History of Present Illness Primary Care Provider: Pardeep Abad MD 78-year-old male presents to the ED via EMS for progressively worsening shortness of breath beginning on September 24. Incidentally he says he was seen in the pulmonary clinic that day, diagnosed with bronchitis and sinusitis, and started on doxycycline. Over the next few days up until present his breathing is become progressively worse. He notes a cough productive of clearish mucus, shortness of breath particularly with exertion, questionable fever, and the feeling of being hot and cold. He says his chest feels more tight than normal but denies any chest pain. Denies any nausea or vomiting. Says he knows he has a heart history and had a pacemaker placed about 11 years ago. He denies any known underlying lung issues. Patient denies any other acute concerns. Past medical history includes anxiety, BPH, idiopathic cardiomegaly, dizziness, obesity, GERD, hyperlipidemia, irritable bowel syndrome, macular degeneration, sensorineural hearing loss, and tobacco abuse. Past surgical history includes pacemaker placement in 2007, bilateral cataract repair. Social history includes smoking cigars. Lives at home with family. Allergies Allergy/AdvReac Type Severity Reaction Status Date / Time No Known Allergies Allergy Mild NONE Verified 09/29/18 23:03 Home Medications Home Medications Medication Instructions Recorded Confirmed Type alprazolam 0.5 mg PO BID 09/29/18 09/29/18 History aspirin 81 mg PO DAILY 09/29/18 09/29/18 History ibuprofen 400 mg PO Q4H PRN 09/29/18 09/29/18 History metoprolol succinate 25 mg PO NOW 09/29/18 09/29/18 History multivitamin 1 tab PO DAILY 09/29/18 09/29/18 History omeprazole 20 mg PO DAILY 09/29/18 09/29/18 History psyllium husk [Metamucil] 1 tbsp PO DAILY 09/29/18 09/29/18 History sildenafil [Viagra] 100 mg PO DAILY PRN 09/29/18 09/29/18 History tamsulosin [Flomax] 0.4 mg PO DAILY 09/29/18 09/29/18 History vit C,X-Ec-dowrj-lutein-zeaxan 1 tab PO AMHS 09/29/18 09/29/18 History [PreserVision AREDS-2] Past Med/Surg History Medical History Pacemaker Surgical History History of permanent cardiac pacemaker placement (~2007) Social History Current Living Situation: Spouse Other Information That Helps Us Care for You: No Feels Safe at Home: Yes Safety Concerns: Feels Safe At This Time Smoking Status: Current some day smoker Tobacco Type: cigars Do You Dip or Chew Tobacco: No Hx Alcohol Use: No Hx Substance Use: No Beliefs That Will Affect Care: None Communication Ability: Effective Review of Systems Constitutional: See HPI. Eyes: Denies any acute visual loss or diplopia ENT: Denies any ear/nose/throat pain or difficulty speaking or swallowing Respiratory: See HPI. Cardiovascular: Denies any chest pain or feeling of leg edema Gastrointestinal: Denies any abdominal pain, nausea/vomiting/diarrhea Musculoskeletal: Denies any acute extremity pains, myalgias, or focal weakness Skin: Denies any known acute rashes or lesions Neuro: Denies any headache, acute focal weakness or numbness, or difficulties with speech or swallow. Psych: Denies any recent depression or anxiety Physical Exam 2 Vital Signs (Past 24 Hours): Last Vital Signs Temp 37.0 C 09/29/18 21:15 Pulse 79 09/29/18 22:50 Resp 18 09/29/18 22:50 BP 143/74 H 09/29/18 22:50 Pulse Ox 94 09/29/18 22:50 Physical Exam: GENERAL: Awake, alert, well-appearing, has an approximate ask on but is speaking comfortably, does not appear in any acute distress ( respiratory or otherwise). HENT: Normocephalic, atraumatic. Oropharynx normal. EYES: Normal conjunctiva. Sclera non-icteric. NECK: Inspection normal. Supple and full ROM. No nuchal rigidity. CARDIAC: +S1S2 RRR, no murmurs. Pacemaker in upper chest. RESPIRATORY: Diminished breath sounds throughout with rales at bases. Has oxymask in place. GI: +BS, soft, non-distended. No tenderness to palpation. No rebound or guarding. EXTREMITIES: No pedal edema or calf tenderness. Moving all extremities naturally and easily. NEURO: No gross neuro deficits. Lines: PIV. Results & Data Laboratory Results 09/29/18 09/29/18 09/29/18 Range/Units 20:39 19:42 19:42 WBC (4.8-10.8) K/uL RBC (4.7-6.1) M/uL Hgb (14.0-18.0) g/dL Hct (42-52) % MCV (80-100) fL MCH (25-34) pg MCHC (32-36) g/dL RDW Std Deviation (36.4-46.3) fL RDW Coeff of Juli (11.5-14.5) % Plt Count (130-400) K/uL MPV (7.4-10.4) fL Immature Gran % (Auto) % Neut % (Auto) % Lymph % (Auto) % Martin % (Auto) % Eos % (Auto) % Baso % (Auto) % Immature Gran # (Auto) (0.00-0.02) K/uL Neut # (Auto) (1.4-6.5) K/uL Lymph # (Auto) (1.2-3.4) K/uL Martin # (Auto) (0.11-0.59) K/uL Eos # (Auto) (0-0.5) K/uL Baso # (Auto) (0-0.2) K/uL ESR (0-14) mm/hr PT (9.0-12.0) Seconds INR (0.9-1.1) APTT (21.0-31.0) Seconds PTT Ratio VBG pH 7.33 L (7.36-7.41) VBG pCO2 52 H (38-50) mmHg VBG pO2 141 mmHg VBG HCO3 27 mmol/L VBG O2 Saturation 98.8 % VBG Base Excess -0.4 mEq/L Barometric Pressure 727.5 mm/Hg Sodium (136-145) mmol/L Potassium (3.5-5.1) mmol/L Chloride (98-107) mmol/L Carbon Dioxide (21-32) mmol/L Anion Gap (3-11) BUN (7-18) mg/dl Creatinine (0.6-1.4) mg/dl Est Cr Clr Drug Dosing ml/min Est GFR ( Amer) Est GFR (Non-Af Amer) BUN/Creatinine Ratio (10-20) Glucose (70-99) mg/dl Lactate 1.1 (0.4-2.0) mmol/L Calcium (8.5-10.1) mg/dl Magnesium (1.8-2.4) mg/dl Total Bilirubin (0.2-1) mg/dl AST (15-37) U/L ALT (12-78) U/L Alkaline Phosphatase (45-117) U/L Troponin I (0-0.045) ng/ml C-Reactive Protein (0-0.29) mg/dl NT-Pro-B Natriuret Pep (0-1800) pg/ml Total Protein (6.4-8.2) gm/dl Albumin (3.4-5.0) gm/dl Globulin (2.5-4.0) gm/dl Albumin/Globulin Ratio (0.9-2) Urine Color Yellow Urine Appearance Clear (Clear) Urine pH 5.0 (4.5-7.5) Ur Specific Marion 1.014 (1.000-1.030) Urine Protein 2+ H (Negative) Urine Glucose (UA) Negative (Negative) Urine Ketones Negative (Negative) Urine Blood Trace H (Negative) Urine Nitrite Negative (Negative) Urine Bilirubin Negative (Negative) Urine Urobilinogen Negative (Negative) Ur Leukocyte Esterase Trace H (Negative) Urine WBC (Auto) 1-5 (0-5) /hpf Urine RBC (Auto) 0-4 (0-4) /hpf U Hyaline Cast (Auto) 1-5 (0-5) /lpf U Epithel Cells (Auto) 5-10 H (0-5) /lpf Urine Bacteria (Auto) Negative (Negative) Influenza Type A (PCR) (Neg) Influenza Type B (PCR) (Neg) 09/29/18 09/29/18 09/29/18 Range/Units 19:29 19:05 19:05 WBC (4.8-10.8) K/uL RBC (4.7-6.1) M/uL Hgb (14.0-18.0) g/dL Hct (42-52) % MCV (80-100) fL MCH (25-34) pg MCHC (32-36) g/dL RDW Std Deviation (36.4-46.3) fL RDW Coeff of Juli (11.5-14.5) % Plt Count (130-400) K/uL MPV (7.4-10.4) fL Immature Gran % (Auto) % Neut % (Auto) % Lymph % (Auto) % Martin % (Auto) % Eos % (Auto) % Baso % (Auto) % Immature Gran # (Auto) (0.00-0.02) K/uL Neut # (Auto) (1.4-6.5) K/uL Lymph # (Auto) (1.2-3.4) K/uL Martin # (Auto) (0.11-0.59) K/uL Eos # (Auto) (0-0.5) K/uL Baso # (Auto) (0-0.2) K/uL ESR (0-14) mm/hr PT 10.5 (9.0-12.0) Seconds INR 1.0 (0.9-1.1) APTT 29.8 (21.0-31.0) Seconds PTT Ratio 1.1 VBG pH (7.36-7.41) VBG pCO2 (38-50) mmHg VBG pO2 mmHg VBG HCO3 mmol/L VBG O2 Saturation % VBG Base Excess mEq/L Barometric Pressure mm/Hg Sodium 137 (136-145) mmol/L Potassium 4.2 (3.5-5.1) mmol/L Chloride 107 (98-107) mmol/L Carbon Dioxide 27 (21-32) mmol/L Anion Gap 3.0 (3-11) BUN 16 (7-18) mg/dl Creatinine 0.97 (0.6-1.4) mg/dl Est Cr Clr Drug Dosing 74.9 ml/min Est GFR ( Amer) 85.7 Est GFR (Non-Af Amer) 73.9 BUN/Creatinine Ratio 16.0 (10-20) Glucose 160 H (70-99) mg/dl Lactate (0.4-2.0) mmol/L Calcium 8.8 (8.5-10.1) mg/dl Magnesium 1.8 (1.8-2.4) mg/dl Total Bilirubin 0.5 (0.2-1) mg/dl AST 20 (15-37) U/L ALT 26 (12-78) U/L Alkaline Phosphatase 117 (45-117) U/L Troponin I 0.037 (0-0.045) ng/ml C-Reactive Protein 1.34 H (0-0.29) mg/dl NT-Pro-B Natriuret Pep 2637 H (0-1800) pg/ml Total Protein 7.7 (6.4-8.2) gm/dl Albumin 3.6 (3.4-5.0) gm/dl Globulin 4.1 H (2.5-4.0) gm/dl Albumin/Globulin Ratio 0.9 (0.9-2) Urine Color Urine Appearance (Clear) Urine pH (4.5-7.5) Ur Specific Marion (1.000-1.030) Urine Protein (Negative) Urine Glucose (UA) (Negative) Urine Ketones (Negative) Urine Blood (Negative) Urine Nitrite (Negative) Urine Bilirubin (Negative) Urine Urobilinogen (Negative) Ur Leukocyte Esterase (Negative) Urine WBC (Auto) (0-5) /hpf Urine RBC (Auto) (0-4) /hpf U Hyaline Cast (Auto) (0-5) /lpf U Epithel Cells (Auto) (0-5) /lpf Urine Bacteria (Auto) (Negative) Influenza Type A (PCR) Neg for Influ A (Neg) Influenza Type B (PCR) Neg for Influ B (Neg) 09/29/18 09/29/18 Range/Units 19:05 19:05 WBC 9.34 (4.8-10.8) K/uL RBC 4.98 (4.7-6.1) M/uL Hgb 16.6 (14.0-18.0) g/dL Hct 47.0 (42-52) % MCV 94.4 (80-100) fL MCH 33.3 (25-34) pg MCHC 35.3 (32-36) g/dL RDW Std Deviation 47.6 H (36.4-46.3) fL RDW Coeff of Juli 13.9 (11.5-14.5) % Plt Count 142 (130-400) K/uL MPV 12.2 H (7.4-10.4) fL Immature Gran % (Auto) 0.2 % Neut % (Auto) 79.0 % Lymph % (Auto) 10.3 % Martin % (Auto) 10.1 % Eos % (Auto) 0.2 % Baso % (Auto) 0.2 % Immature Gran # (Auto) 0.02 (0.00-0.02) K/uL Neut # (Auto) 7.38 H (1.4-6.5) K/uL Lymph # (Auto) 0.96 L (1.2-3.4) K/uL Martin # (Auto) 0.94 H (0.11-0.59) K/uL Eos # (Auto) 0.02 (0-0.5) K/uL Baso # (Auto) 0.02 (0-0.2) K/uL ESR 28 H (0-14) mm/hr PT (9.0-12.0) Seconds INR (0.9-1.1) APTT (21.0-31.0) Seconds PTT Ratio VBG pH (7.36-7.41) VBG pCO2 (38-50) mmHg VBG pO2 mmHg VBG HCO3 mmol/L VBG O2 Saturation % VBG Base Excess mEq/L Barometric Pressure mm/Hg Sodium (136-145) mmol/L Potassium (3.5-5.1) mmol/L Chloride (98-107) mmol/L Carbon Dioxide (21-32) mmol/L Anion Gap (3-11) BUN (7-18) mg/dl Creatinine (0.6-1.4) mg/dl Est Cr Clr Drug Dosing ml/min Est GFR ( Amer) Est GFR (Non-Af Amer) BUN/Creatinine Ratio (10-20) Glucose (70-99) mg/dl Lactate (0.4-2.0) mmol/L Calcium (8.5-10.1) mg/dl Magnesium (1.8-2.4) mg/dl Total Bilirubin (0.2-1) mg/dl AST (15-37) U/L ALT (12-78) U/L Alkaline Phosphatase (45-117) U/L Troponin I (0-0.045) ng/ml C-Reactive Protein (0-0.29) mg/dl NT-Pro-B Natriuret Pep (0-1800) pg/ml Total Protein (6.4-8.2) gm/dl Albumin (3.4-5.0) gm/dl Globulin (2.5-4.0) gm/dl Albumin/Globulin Ratio (0.9-2) Urine Color Urine Appearance (Clear) Urine pH (4.5-7.5) Ur Specific Marion (1.000-1.030) Urine Protein (Negative) Urine Glucose (UA) (Negative) Urine Ketones (Negative) Urine Blood (Negative) Urine Nitrite (Negative) Urine Bilirubin (Negative) Urine Urobilinogen (Negative) Ur Leukocyte Esterase (Negative) Urine WBC (Auto) (0-5) /hpf Urine RBC (Auto) (0-4) /hpf U Hyaline Cast (Auto) (0-5) /lpf U Epithel Cells (Auto) (0-5) /lpf Urine Bacteria (Auto) (Negative) Influenza Type A (PCR) (Neg) Influenza Type B (PCR) (Neg) Diagnostic Findings XR chest 1V portable IMPRESSION: Moderate cardiomegaly. Pulmonary vascular congestion versus early congestive failure. Code Status & VTE Plan Code Status Full code VTE Prophylaxis Plan VTE Prophylaxis will be ordered: Yes Supervising Physician Co-Signing Physician Notes Attending addendum: I have physically seen this patient, have supervised the medical residents activities, and agree with the H&P unless as otherwise noted. Assessment and Plan: Acute on chronic systolic CHF/idiopathic cardiomyopathy/Mobitz type II heart block/EF 30-35%-- The patient will be admitted to telemetry for serial cardiac enzymes, serial EKG's, cardiac rhythm monitoring and a 2-D echocardiogram with Dopplers.. Continue metoprolol succinate ER 25 mg daily, losartan 25 mg daily and aspirin 81 mg daily. Given the first dose of Lasix 40 mg IV in the ED along with Nitropaste 1/2 inch. Give additional 40 mg Lasix IV now and then 40 mg IV twice daily. Continue Nitropaste. Follow serial laboratories and x-rays. Consult her professor of nursing Dr. Vanegas. Remaining orders and notations as noted. Resident Activity Tracking Resident Involvement: Resident Care Provided Care Provided: [facility] Medicine _ (1) Pulmonary edema Chronicity: acute Qualified Code(s): J81.0 - Acute pulmonary edema
[2018-09-30] MEDS ORDERED: IBUPROFEN 200 MG TAB PO PRN (00:11)
[2018-09-30] MEDS ORDERED: ONDANSETRON INJ 2 MG/ML 2 ML VIAL IV PRN (00:11)
[2018-09-30] MEDS ORDERED: METOPROLOL SUCC 25MG EXT REL TAB PO SCH (00:11)
[2018-09-30] MEDS ORDERED: FUROSEMIDE 40 MG in SYRINGE 0 ML IV ONE (00:30)
[2018-09-30 06:00] LABS: Basophils # (auto) 0.02 K/uL (0-0.2); Basophils % (auto) 0.2 %; Hematocrit (blood only) 47.8 % (42-52); Hemoglobin 17.8 g/dL (14.0-18.0); Immature Granulocytes # (auto) 0.03 K/uL (0.00-0.02); Immature Granulocytes % (auto) 0.3 %; Lymphocytes # (auto) 0.72 K/uL (1.2-3.4); Lymphocytes % (auto) 6.7 %; Mean Corpuscular Hgb Conc 37.2 g/dL (32-36); Mean Corpuscular Volume 95.2 fL (80-100); Mean Platelet Volume 11.6 fL (7.4-10.4); Monocytes # (auto) 1.25 K/uL (0.11-0.59); Monocytes % (auto) 11.6 %; Neutrophils # (auto) 8.77 K/uL (1.4-6.5); Neutrophils % (auto) 81.2 %; Platelet Count 129 K/uL (130-400); RDW Coefficient of Variation 13.7 % (11.5-14.5); RDW Standard Deviation 47.4 fL (36.4-46.3); Red Blood Count 5.02 M/uL (4.7-6.1); White Blood Count 10.79 K/uL (4.8-10.8)
[2018-09-30 06:24] LABS: BUN Creatinine Ratio 15.3 (10-20); Calcium 8.5 mg/dl (8.5-10.1); Creatinine Clr Calc Pharmacy 72.3 ml/min; Est GFR (African American) 78.8; Potassium 3.8 mmol/L (3.5-5.1)
[2018-09-30] MEDS: CEROVITE ADV FORMULA TAB PO SCH ×2 (08:08→20:03)
[2018-09-30] MEDS: LOSARTAN POTASSIUM 25 MG TAB PO SCH (08:08)
[2018-09-30] MEDS: PANTOprazole 40 MG TAB PO SCH (08:08)
[2018-09-30] MEDS: PSYLLIUM 58.6% POWDER PACKET PO SCH (08:08)
[2018-09-30] MEDS: ENOXAPARIN INJ 30 MG/0.3 ML SYR SQ SCH (08:09)
[2018-09-30] MEDS: MULTIVITAMIN TAB PO SCH (08:09)
[2018-09-30] MEDS: DOXYCYCLINE HYCLATE 100 MG CAP PO SCH ×2 (08:09→20:03)
[2018-09-30] MEDS: ASPIRIN 81 MG ECTAB PO SCH (08:09)
[2018-09-30] MEDS: TAMSULOSIN HCL 0.4 MG CAP PO SCH (08:09)
[2018-09-30] MEDS: ALPRAZolam 0.5 MG TABLET PO SCH ×2 (08:12→20:02)
--- NOTE | 2018-09-30 10:36 | Family Medicine Progress Note ---
Date of Service September 30, 2018 Assessment & Plan (1) Shortness of breath: 78-year-old male was admitted on 29 September 2017 for progressive shortness of breath. Since september 24 having productive cough, chest tightness , f/c adn worsening sob. Received NTG x 3 en-route. In ED, found to have temp of 38.1, was not tachycardic, but had initial tachypnea and was satting 94% on oximask. WBC 9, ESR 28, CRP 1.34, BNP 2637. VBG notes pH 7.33, CO2 52, bicarb 27. Negative influenza A and B. EKG notes rate of 106 with an atrial sensed ventricularly paced rhythm. Chest x-ray and exam suggests pulmonary congestion due to pulmonary edema. Received Tylenol, Lasix 40 mg IV x 2, and 1/2 inch of Nitropaste in the ED with some improvement in breathing and was admitted. Shortness of breath, pulmonary edema: likely secondary to viral URI vs. CHF exacerbation vs. likely COPD exacerbation -Progressively worsening since . Productive cough, chest tightness, f/c. -Hx of extensive smoking 3-4 packs for 15 years (quit 30 yrs ago) and now 4-5 cigars/wk but denies hx of known pulmonary disease -Hx of idiopathic cardiomyopathy and Mobitz type II AV block: Followed by Dr. Vanegas cardiology. Has pacemaker x 11 years -Echocardiogram March 2018: EF of 30-35%, LV SF is moderately reduced, moderate global hypokinesis of the left ventricle, and mild concentric LVH (no significant change from September 2016) -Received Lasix 40mg IV x 2 with 1.8L diuresis appears euvolemic on exam -Continue home metoprolol 25mg daily, losartan 25mg daily and aspirin -On doxycycline -Started on solumedrol 40mg Q6H -started on duoneb QID and Q4H PRN -IS/flutter valve ordered Cough: concern for viral URI vs. bronchitis in the setting of likely COPD -on doxycycline twice daily for acute bronchitis plus sinusitis plus skin changes (? pimple) on his nose - started by PCP Proteinuria: Per UA. Cr 1. Follow up outpt Ongoing medical issues: - Hypercholesterolemia: At home is on Lipitor. Continue here. - Hyperglycemia: Recent hemoglobin A1c 5.9%. On admit glucose 160. Monitor for now. - Idiopathic cardiomyopathy and a history of a Mobitz type II AV block: Followed by Dr. Vanegas of cardiology as outpatient. At home is on metoprolol succinate ER 25 mg daily, losartan 25 mg daily, and aspirin. Continue here. - Urinary outlet obstruction, BPH: At home is on Flomax. Continue here. - Anxiety: At home is on Xanax. Continue here. - Irritable bowel syndrome and esophageal dysmotility: At home is on dicyclomine , Prilosec, and psyllium. Continue here. - Macular degeneration: Is on Ocuvite. Continue here. - Low back pain: Occasionally uses Advil. Continue here as needed. Code status: Full code Diet: Heart healthy DVT prophy: Lovenox PT/OT: ordered Disbo: pending clinical improvement (2) Pulmonary edema: (3) Cough: (4) Proteinuria: (5) Hypercholesterolemia: (6) Idiopathic cardiomyopathy: (7) BPH (benign prostatic hyperplasia): (8) Anxiety: (9) Irritable bowel syndrome: (10) Esophageal dysmotility: (11) Macular degeneration: (12) Low back pain: Supervising Physician Co-Signing Physician Notes I personally examined the patient and verified all cadet points of history and exam, discussed case, and agree with decision making with Dr Franco. Breathing better and feeling better than when he came in. Vitals noted, in general he is awake alert oriented x3 pleasant no acute distress. Lungs show faint scattered rhonchi no rales definitely no basilar rales no accessory muscles good effort. Febrile respiratory illnesshe does not have defined COPD but certainly this seems empirically consistent with a COPD exacerbation, and we will treat as such. Acute on chronic systolic CHFthis appears to be precipitated by the metabolic stress from his COPD exacerbation. He has diuresed well, we will continue his home meds and follow closely. Could consider initiation of Entresto, but right now he does appear stable DVT prophylaxisLovenox Subjective This AM pt reported sob improved since last night. However continues to have chest tightness, productive cough, fever, chills, rhinorrhea, and now sore throat as well Also reports smoking 3-4 packs per day for 15 years (quit 30 years ago). Now smokes 4-5 cigars a week Denies any NGUYEN/dizziness, cp, n/v, abdominal pain, dysuria Physical Exam 2 Vital Signs (Past 24 Hours): Last Vital Signs Temp 38.8 C H 09/30/18 07:12 Pulse 85 09/30/18 07:12 Resp 20 09/30/18 07:12 BP 144/75 H 09/30/18 07:12 Pulse Ox 90 09/30/18 07:12 Physical Exam: General: pleasant, cooperative, in mild respiratory distress this AM (improved in recheck in the PM) Neuro: alert and oriented x 4 CV: RRR, no m/r/g Pulm: diffuse rhonchi, no crackles or wheezing appreciated, equal breath sounds bilaterally; mild respiratory stress on 6L NC Abdomen: +BS, NTTP in all quadrants, non-distended LE: no LE pitting edema, no calf tenderness to palpation Results & Data Laboratory Results Abnormal lab results 09/29/18 09/29/18 09/29/18 Range/Units 19:05 19:05 19:05 MCH (25-34) pg MCHC (32-36) g/dL RDW Std Deviation 47.6 H (36.4-46.3) fL Plt Count (130-400) K/uL MPV 12.2 H (7.4-10.4) fL Immature Gran # (Auto) (0.00-0.02) K/uL Neut # (Auto) 7.38 H (1.4-6.5) K/uL Lymph # (Auto) 0.96 L (1.2-3.4) K/uL Fallon # (Auto) 0.94 H (0.11-0.59) K/uL ESR 28 H (0-14) mm/hr VBG pH (7.36-7.41) VBG pCO2 (38-50) mmHg Glucose 160 H (70-99) mg/dl C-Reactive Protein 1.34 H (0-0.29) mg/dl NT-Pro-B Natriuret Pep 2637 H (0-1800) pg/ml Globulin 4.1 H (2.5-4.0) gm/dl Urine Protein (Negative) Urine Blood (Negative) Ur Leukocyte Esterase (Negative) U Epithel Cells (Auto) (0-5) /lpf 09/29/18 09/29/18 09/30/18 Range/Units 19:42 20:39 05:40 MCH (25-34) pg MCHC (32-36) g/dL RDW Std Deviation (36.4-46.3) fL Plt Count (130-400) K/uL MPV (7.4-10.4) fL Immature Gran # (Auto) (0.00-0.02) K/uL Neut # (Auto) (1.4-6.5) K/uL Lymph # (Auto) (1.2-3.4) K/uL Fallon # (Auto) (0.11-0.59) K/uL ESR (0-14) mm/hr VBG pH 7.33 L (7.36-7.41) VBG pCO2 52 H (38-50) mmHg Glucose 169 H (70-99) mg/dl C-Reactive Protein (0-0.29) mg/dl NT-Pro-B Natriuret Pep (0-1800) pg/ml Globulin (2.5-4.0) gm/dl Urine Protein 2+ H (Negative) Urine Blood Trace H (Negative) Ur Leukocyte Esterase Trace H (Negative) U Epithel Cells (Auto) 5-10 H (0-5) /lpf 09/30/18 Range/Units 05:40 MCH 35.5 H (25-34) pg MCHC 37.2 H (32-36) g/dL RDW Std Deviation 47.4 H (36.4-46.3) fL Plt Count 129 L (130-400) K/uL MPV 11.6 H (7.4-10.4) fL Immature Gran # (Auto) 0.03 H (0.00-0.02) K/uL Neut # (Auto) 8.77 H (1.4-6.5) K/uL Lymph # (Auto) 0.72 L (1.2-3.4) K/uL Fallon # (Auto) 1.25 H (0.11-0.59) K/uL ESR (0-14) mm/hr VBG pH (7.36-7.41) VBG pCO2 (38-50) mmHg Glucose (70-99) mg/dl C-Reactive Protein (0-0.29) mg/dl NT-Pro-B Natriuret Pep (0-1800) pg/ml Globulin (2.5-4.0) gm/dl Urine Protein (Negative) Urine Blood (Negative) Ur Leukocyte Esterase (Negative) U Epithel Cells (Auto) (0-5) /lpf Medications Administered Current Inpatient Medications Albuterol (Duoneb) 3 ml NEB QIDR [facility] Stop: 10/30/18 15:59 Last Admin: 09/30/18 17:15 Dose: 3 ml Albuterol (Duoneb) 3 ml NEB Q4R PRN PRN Reason: sob Stop: 10/30/18 15:59 Alprazolam (Xanax) 0.5 mg PO BID [facility] Stop: 10/30/18 08:59 Last Admin: 09/30/18 08:12 Dose: 0.5 mg Aspirin (Ecotrin Ectab) 81 mg PO DAILY [facility] Stop: 10/30/18 08:59 Last Admin: 09/30/18 08:09 Dose: 81 mg Doxycycline Hyclate (Vibramycin) 100 mg PO BID [facility] Stop: 10/07/18 08:59 Last Admin: 09/30/18 08:09 Dose: 100 mg Enoxaparin Sodium (Lovenox) 30 mg SQ Q24H [facility] Stop: 10/30/18 08:59 Last Admin: 09/30/18 08:09 Dose: 30 mg Methylprednisolone 40 mg/ (Syringe) 0.64 mls @ 1.5 mls/min IV Q6H [facility] Stop: 10/30/18 15:59 Last Admin: 09/30/18 16:54 Dose: 1.5 mls/min Ibuprofen (Advil) 400 mg PO Q4H PRN PRN Reason: pain/fever Losartan Potassium (Cozaar) 25 mg PO QAM [facility] Stop: 10/30/18 08:59 Last Admin: 09/30/18 08:08 Dose: 25 mg Metoprolol Succinate (Toprol Xl) 25 mg PO NOW [facility] Stop: 10/30/18 00:10 Multivitamins (Multivitamin Tab) 1 tab PO DAILY [facility] Stop: 10/30/18 08:59 Last Admin: 09/30/18 08:09 Dose: 1 tab Multivitamins/Minerals (Multivitamin W/ Minerals Tab) 1 tab PO AMHS [facility] Stop: 10/30/18 08:59 Last Admin: 09/30/18 08:08 Dose: 1 tab Ondansetron HCl (Zofran) 4 mg IV Q6H PRN PRN Reason: Nausea Stop: 10/30/18 00:10 Pantoprazole Sodium (Protonix) 40 mg PO DAILY [facility] Stop: 10/30/18 08:59 Last Admin: 09/30/18 08:08 Dose: 40 mg Psyllium Hydrophilic Mucilloid (Metamucil) 1 pkt PO DAILY [facility] Stop: 10/30/18 08:59 Last Admin: 09/30/18 08:08 Dose: 1 pkt Tamsulosin HCl (Flomax) 0.4 mg PO DAILY [facility] Stop: 10/30/18 08:59 Last Admin: 09/30/18 08:09 Dose: 0.4 mg Resident Activity Tracking Resident Involvement: Resident Care Provided Care Provided: Adult [facility] _ (1) Pulmonary edema Chronicity: acute Qualified Code(s): J81.0 - Acute pulmonary edema
[2018-09-30] MEDS ORDERED: OR MISCELLANEOUS MED ONE (10:42)
[2018-09-30] MEDS ORDERED: ALBUT/IPRATROP 3MG/0.5MG NEB 3 ML VIAL NEB PRN (14:48)
[2018-09-30] MEDS: methylPREDNISolone 40 MG in SYRINGE 0 ML IV SCH ×2 (16:54→20:58)
[2018-09-30] MEDS: ALBUT/IPRATROP 3MG/0.5MG NEB 3 ML VIAL NEB SCH ×2 (17:15→18:54)
[2018-10-01] MEDS: methylPREDNISolone 40 MG in SYRINGE 0 ML IV SCH ×4 (04:35→21:16)
[2018-10-01] MEDS: ALBUT/IPRATROP 3MG/0.5MG NEB 3 ML VIAL NEB SCH ×4 (07:35→21:00)
[2018-10-01 07:58] LABS: Basophils # (auto) 0.01 K/uL (0-0.2); Basophils % (auto) 0.1 %; Hemoglobin 15.8 g/dL (14.0-18.0); Immature Granulocytes # (auto) 0.03 K/uL (0.00-0.02); Immature Granulocytes % (auto) 0.3 %; Lymphocytes # (auto) 0.86 K/uL (1.2-3.4); Lymphocytes % (auto) 8.1 %; Mean Corpuscular Hgb Conc 35.9 g/dL (32-36); Mean Platelet Volume 11.8 fL (7.4-10.4); Monocytes # (auto) 0.64 K/uL (0.11-0.59); Neutrophils # (auto) 9.11 K/uL (1.4-6.5); Neutrophils % (auto) 85.5 %; Platelet Count 120 K/uL (130-400); RDW Coefficient of Variation 13.4 % (11.5-14.5); Red Blood Count 4.68 M/uL (4.7-6.1); White Blood Count 10.65 K/uL (4.8-10.8)
[2018-10-01] MEDS: ENOXAPARIN INJ 30 MG/0.3 ML SYR SQ SCH (08:02)
[2018-10-01] MEDS: ASPIRIN 81 MG ECTAB PO SCH (08:03)
[2018-10-01] MEDS: LOSARTAN POTASSIUM 25 MG TAB PO SCH (08:03)
[2018-10-01] MEDS: MULTIVITAMIN TAB PO SCH (08:03)
[2018-10-01] MEDS: DOXYCYCLINE HYCLATE 100 MG CAP PO SCH ×2 (08:03→21:17)
[2018-10-01] MEDS: CEROVITE ADV FORMULA TAB PO SCH ×2 (08:03→21:17)
[2018-10-01] MEDS: PANTOprazole 40 MG TAB PO SCH (08:04)
[2018-10-01] MEDS: PSYLLIUM 58.6% POWDER PACKET PO SCH (08:04)
[2018-10-01] MEDS: TAMSULOSIN HCL 0.4 MG CAP PO SCH (08:04)
[2018-10-01] MEDS: ALPRAZolam 0.5 MG TABLET PO SCH ×2 (08:06→21:16)
--- NOTE | 2018-10-01 08:58 | Family Medicine Progress Note ---
Date of Service October 01, 2018 Assessment & Plan (1) Shortness of breath: 78-year-old male was admitted on 29 September 2017 for progressive shortness of breath. Since september 24 having productive cough, chest tightness , f/c and worsening sob. Received NTG x 3 en-route. In ED, found to have temp of 38.1, was not tachycardic, but had initial tachypnea and was satting 94% on oxymask. WBC 9, ESR 28, CRP 1.34, BNP 2637. VBG notes pH 7.33, CO2 52, bicarb 27. Negative influenza A and B. EKG notes rate of 106 with an atrial sensed ventricularly paced rhythm. Chest x-ray and exam suggests pulmonary congestion due to pulmonary edema. Received Tylenol, Lasix 40 mg IV x 2, and 1/2 inch of Nitropaste in the ED with some improvement in breathing and was admitted. Shortness of breath, pulmonary edema: likely secondary to viral URI causing COPD and CHF exacerbation -Progressively worsening since . Productive cough, chest tightness, f/c. -Hx of extensive smoking 3-4 packs for 15 years (quit 30 yrs ago) and now 4-5 cigars/wk but denies hx of known pulmonary disease -Hx of idiopathic cardiomyopathy and Mobitz type II AV block: Followed by Dr. Vanegas cardiology. Has pacemaker x 11 years -Echocardiogram March 2018: EF of 30-35%, LV SF is moderately reduced, moderate global hypokinesis of the left ventricle, and mild concentric LVH (no significant change from September 2016) -Received Lasix 40mg IV x 2 with 1.8L diuresis appears euvolemic on exam -Continue home metoprolol 25mg daily, losartan 25mg daily and aspirin -On doxycycline -Continue solumedrol 40mg Q6H -Continue duoneb QID and Q4H PRN -IS/flutter valve Cough: concern for viral URI vs. bronchitis in the setting of likely COPD -on doxycycline twice daily for acute bronchitis plus sinusitis plus skin changes (? pimple) on his nose - started by PCP -recommend outpt PFT and follow up Proteinuria: Per UA. Cr 1. Follow up outpt Ongoing medical issues: - Hypercholesterolemia: At home is on Lipitor. Continue here. - Hyperglycemia: Recent hemoglobin A1c 5.9%. On admit glucose 160. Monitor for now. - Idiopathic cardiomyopathy and a history of a Mobitz type II AV block: Followed by Dr. Vanegas of cardiology as outpatient. At home is on metoprolol succinate ER 25 mg daily, losartan 25 mg daily, and aspirin. Continue here. - Urinary outlet obstruction, BPH: At home is on Flomax. Continue here. - Anxiety: At home is on Xanax. Continue here. - Irritable bowel syndrome and esophageal dysmotility: At home is on dicyclomine , Prilosec, and psyllium. Continue here. - Macular degeneration: Is on Ocuvite. Continue here. - Low back pain: Occasionally uses Advil. Continue here as needed. Code status: Full code Diet: Heart healthy DVT prophy: Lovenox PT/OT: ordered Disbo: pending clinical improvement (2) Pulmonary edema: (3) Cough: (4) Proteinuria: (5) Hypercholesterolemia: (6) Idiopathic cardiomyopathy: (7) BPH (benign prostatic hyperplasia): (8) Anxiety: (9) Irritable bowel syndrome: (10) Esophageal dysmotility: (11) Macular degeneration: (12) Low back pain: Supervising Physician Co-Signing Physician Notes I personally examined the patient and verified all cadet points of history and exam, discussed case, and agree with decision making with Dr Franco. He is continuing to feel better, and less short of breath. Vitals noted, in general he is awake alert oriented x3 pleasant no acute distress. Lungs unlabored no accessory muscle use good effort. Acute hypoxic respiratory failure, POAdue to below, this is improving. Febrile respiratory illnesshe does not have defined COPD but certainly this seems empirically consistent with a COPD exacerbation, continue current treatment, outpatient PFTs in a month or 2. Acute on chronic systolic CHFthis appears to be precipitated by the metabolic stress from his COPD exacerbation. This now appears stable. Could consider initiation of Entresto, but right now he does appear stable DVT prophylaxisLovenox Subjective This AM pt reported improving sob and chest tightness. Still having productive cough and sore throat Afebrile since 110 AM Denies any f/c, NGUYEN/dizziness, rhinorrhea, cp, n/v, abdominal pain Physical Exam 2 Vital Signs (Past 24 Hours): Last Vital Signs Temp 36.7 C 10/01/18 07:37 Pulse 78 10/01/18 08:37 Resp 20 10/01/18 08:37 BP 132/72 10/01/18 07:37 Pulse Ox 94 10/01/18 08:37 Physical Exam: General: pleasant, cooperative, resting comfortably this AM when examined Neuro: alert and oriented x 4 CV: RRR, no m/r/g Pulm: diffuse but improving rhonchi, no crackles or wheezing appreciated, equal breath sounds bilaterally, no respiratory distress, on 3L NC Abdomen: +BS, NTTP in all quadrants, non-distended LE: no LE pitting edema, no calf tenderness to palpation Results & Data Laboratory Results Abnormal lab results 10/01/18 Range/Units 07:23 RBC 4.68 L (4.7-6.1) M/uL Plt Count 120 L (130-400) K/uL MPV 11.8 H (7.4-10.4) fL Immature Gran # (Auto) 0.03 H (0.00-0.02) K/uL Neut # (Auto) 9.11 H (1.4-6.5) K/uL Lymph # (Auto) 0.86 L (1.2-3.4) K/uL [place] # (Auto) 0.64 H (0.11-0.59) K/uL Medications Administered Current Inpatient Medications Albuterol (Duoneb) 3 ml NEB QIDR [facility] Stop: 10/30/18 15:59 Last Admin: 10/01/18 07:35 Dose: 3 ml Albuterol (Duoneb) 3 ml NEB Q4R PRN PRN Reason: sob Stop: 10/30/18 15:59 Alprazolam (Xanax) 0.5 mg PO BID [facility] Stop: 10/30/18 08:59 Last Admin: 10/01/18 08:06 Dose: 0.5 mg Aspirin (Ecotrin Ectab) 81 mg PO DAILY [facility] Stop: 10/30/18 08:59 Last Admin: 10/01/18 08:03 Dose: 81 mg Doxycycline Hyclate (Vibramycin) 100 mg PO BID [facility] Stop: 10/07/18 08:59 Last Admin: 10/01/18 08:03 Dose: 100 mg Enoxaparin Sodium (Lovenox) 30 mg SQ Q24H [facility] Stop: 10/30/18 08:59 Last Admin: 10/01/18 08:02 Dose: 30 mg Methylprednisolone 40 mg/ (Syringe) 0.64 mls @ 1.5 mls/min IV Q6H [facility] Stop: 10/30/18 15:59 Last Admin: 10/01/18 04:35 Dose: 1.5 mls/min Ibuprofen (Advil) 400 mg PO Q4H PRN PRN Reason: pain/fever Losartan Potassium (Cozaar) 25 mg PO QAM [facility] Stop: 10/30/18 08:59 Last Admin: 10/01/18 08:03 Dose: 25 mg Metoprolol Succinate (Toprol Xl) 25 mg PO NOW [facility] Stop: 10/30/18 00:10 Multivitamins (Multivitamin Tab) 1 tab PO DAILY [facility] Stop: 10/30/18 08:59 Last Admin: 10/01/18 08:03 Dose: 1 tab Multivitamins/Minerals (Multivitamin W/ Minerals Tab) 1 tab PO [facility] Stop: 10/30/18 08:59 Last Admin: 10/01/18 08:03 Dose: 1 tab Ondansetron HCl (Zofran) 4 mg IV Q6H PRN PRN Reason: Nausea Stop: 10/30/18 00:10 Pantoprazole Sodium (Protonix) 40 mg PO DAILY [facility] Stop: 10/30/18 08:59 Last Admin: 10/01/18 08:04 Dose: 40 mg Psyllium Hydrophilic Mucilloid (Metamucil) 1 pkt PO DAILY [facility] Stop: 10/30/18 08:59 Last Admin: 10/01/18 08:04 Dose: 1 pkt Tamsulosin HCl (Flomax) 0.4 mg PO DAILY [facility] Stop: 10/30/18 08:59 Last Admin: 10/01/18 08:04 Dose: 0.4 mg Resident Activity Tracking Resident Involvement: Resident Care Provided Care Provided: [facility] Medicine _ (1) Pulmonary edema Chronicity: acute Qualified Code(s): J81.0 - Acute pulmonary edema
[2018-10-01 09:14] LABS: Calcium 8.8 mg/dl (8.5-10.1); Creatinine Clr Calc Pharmacy 67.9 ml/min; Est GFR (African American) 74.4; Est GFR (Non-African American) 64.2; Potassium 4.1 mmol/L (3.5-5.1)
[2018-10-02] MEDS: methylPREDNISolone 40 MG in SYRINGE 0 ML IV SCH ×3 (05:01→15:50)
[2018-10-02] MEDS: ALBUT/IPRATROP 3MG/0.5MG NEB 3 ML VIAL NEB SCH ×3 (07:57→15:45)
[2018-10-02] MEDS: DOXYCYCLINE HYCLATE 100 MG CAP PO SCH ×2 (08:22→20:30)
[2018-10-02] MEDS: ASPIRIN 81 MG ECTAB PO SCH (08:22)
[2018-10-02] MEDS: LOSARTAN POTASSIUM 25 MG TAB PO SCH (08:23)
[2018-10-02] MEDS: TAMSULOSIN HCL 0.4 MG CAP PO SCH (08:23)
[2018-10-02] MEDS: CEROVITE ADV FORMULA TAB PO SCH ×2 (08:23→20:31)
[2018-10-02] MEDS: PANTOprazole 40 MG TAB PO SCH (08:23)
[2018-10-02] MEDS: MULTIVITAMIN TAB PO SCH (08:23)
[2018-10-02] MEDS: ENOXAPARIN INJ 30 MG/0.3 ML SYR SQ SCH (08:25)
[2018-10-02] MEDS: PSYLLIUM 58.6% POWDER PACKET PO SCH (08:25)
[2018-10-02] MEDS: ALPRAZolam 0.5 MG TABLET PO SCH ×2 (08:30→20:32)
[2018-10-02 08:34] LABS: Basophils # (auto) 0.02 K/uL (0-0.2); Basophils % (auto) 0.1 %; Hematocrit (blood only) 44.7 % (42-52); Immature Granulocytes # (auto) 0.05 K/uL (0.00-0.02); Immature Granulocytes % (auto) 0.3 %; Lymphocytes # (auto) 1.52 K/uL (1.2-3.4); Lymphocytes % (auto) 9.4 %; Mean Corpuscular Hgb Conc 35.8 g/dL (32-36); Mean Corpuscular Volume 93.3 fL (80-100); Mean Platelet Volume 12.2 fL (7.4-10.4); Monocytes % (auto) 5.6 %; Neutrophils # (auto) 13.64 K/uL (1.4-6.5); Neutrophils % (auto) 84.6 %; Platelet Count 144 K/uL (130-400); RDW Coefficient of Variation 13.3 % (11.5-14.5); RDW Standard Deviation 45.5 fL (36.4-46.3); Red Blood Count 4.79 M/uL (4.7-6.1); White Blood Count 16.13 K/uL (4.8-10.8)
[2018-10-02 09:04] LABS: BUN Creatinine Ratio 35.4 (10-20); Calcium 9.2 mg/dl (8.5-10.1); Creatinine Clr Calc Pharmacy 54.8 ml/min; Est GFR (Non-African American) 49.1
--- NOTE | 2018-10-02 15:29 | Family Medicine Progress Note ---
Date of Service October 02, 2018 Assessment & Plan (1) Shortness of breath: 78-year-old male was admitted on 29 September 2017 for progressive shortness of breath in the setting of likely viral URI vs. bronchitis exacerbating COPD and CHF. Shortness of breath, pulmonary edema: likely secondary to viral URI causing COPD and CHF exacerbation -Progressively worsening since . Productive cough, chest tightness, f/c. -Hx of extensive smoking 3-4 packs for 15 years (quit 30 yrs ago) and now 4-5 cigars/wk but denies hx of known pulmonary disease -initially febrile 38.1, tachypneic, requiring O2 -ESR and CRP elevated with normal WBC, neg influenza -Initial VBG: pH 7.33, CO2 52, bicarb 27 -Chest x-ray and exam suggests pulmonary congestion due to pulmonary edema -Hx of idiopathic cardiomyopathy and Mobitz type II AV block: Followed by Dr. Vanegas cardiology. Has pacemaker x 11 years -Echocardiogram March 2018: EF of 30-35%, LV SF is moderately reduced, moderate global hypokinesis of the left ventricle, and mild concentric LVH (no significant change from September 2016) -EKG notes rate of 106 with an atrial sensed ventricularly paced rhythm -Admit BNP 2637 -Received Lasix 40mg IV x 2 with 1.8L diuresis appears euvolemic on exam -On doxycycline day 12 -Continue solumedrol 40mg Q6H ->Q12H -Continue duoneb Q4H PRN -IS/flutter valve Concern for COPD -Hx of extensive smoking 3-4 packs for 15 years (quit 30 yrs ago) and now 4-5 cigars/wk but denies hx of known pulmonary disease -recommend outpt PFT and follow up Proteinuria: Per UA. Cr 1. Follow up outpt Ongoing medical issues: - Hypercholesterolemia: At home is on Lipitor. Continue here. - Hyperglycemia: Recent hemoglobin A1c 5.9%. On admit glucose 160. Monitor for now. - Idiopathic cardiomyopathy and a history of a Mobitz type II AV block: Followed by Dr. Vanegas of cardiology as outpatient. At home is on metoprolol succinate ER 25 mg daily, losartan 25 mg daily, and aspirin. Continue here. - Urinary outlet obstruction, BPH: At home is on Flomax. Continue here. - Anxiety: At home is on Xanax. Continue here. - Irritable bowel syndrome and esophageal dysmotility: At home is on dicyclomine , Prilosec, and psyllium. Continue here. - Macular degeneration: Is on Ocuvite. Continue here. - Low back pain: Occasionally uses Advil. Continue here as needed. Code status: Full code Diet: Heart healthy DVT prophy: Lovenox PT/OT: ordered Disbo: pending clinical improvement (2) Pulmonary edema: (3) Cough: (4) Proteinuria: (5) Hypercholesterolemia: (6) Idiopathic cardiomyopathy: (7) BPH (benign prostatic hyperplasia): (8) Anxiety: (9) Irritable bowel syndrome: (10) Esophageal dysmotility: (11) Macular degeneration: (12) Low back pain: Supervising Physician Co-Signing Physician Notes I personally examined the patient and verified all cadet points of history and exam, discussed case, and agree with decision making with Dr Franco. He is feeling better and his breathing is better, but he does note that he is weak. PT notes are evaluated, and they recommend rehab. He notes that he is afraid that he would fall. Vitals noted, in general he is awake alert oriented x3 pleasant no acute distress. Lungs unlabored no accessory muscle use good effort. Acute hypoxic respiratory failure, POAdue to below, this is improving. Continue current care Febrile respiratory illnesshe does not have defined COPD but certainly this seems empirically consistent with a COPD exacerbation, wean current treatment, outpatient PFTs in a month or 2. Acute on chronic systolic CHFthis appears to be precipitated by the metabolic stress from his COPD exacerbation. Stable now. Could consider initiation of Entresto, but right now he does appear stable DVT prophylaxisLovenox Dispositionhe is weak, PT is recommending rehab, I discussed with case management. Subjective This AM pt reported improved sob and chest tightness. Still having productive cough Denies any f/c, NGUYEN/dizziness, rhinorrhea, cp, n/v, abdominal pain Physical Exam 2 Vital Signs (Past 24 Hours): Last Vital Signs Temp 36.5 C 10/02/18 08:08 Pulse 92 H 10/02/18 11:16 Resp 18 10/02/18 11:16 BP 145/75 H 10/02/18 08:08 Pulse Ox 92 10/02/18 11:16 Physical Exam: General: pleasant, cooperative, coughing when examined Neuro: alert and oriented x 4 CV: RRR, no m/r/g Pulm: diffuse rhonchi, no crackles or wheezing appreciated, equal breath sounds bilaterally, no respiratory distress, on RA this AM Abdomen: +BS, NTTP in all quadrants, non-distended LE: no LE pitting edema, no calf tenderness to palpation Results & Data Laboratory Results Abnormal lab results 10/01/18 10/01/18 10/01/18 Range/Units 20:30 20:32 20:35 WBC (4.8-10.8) K/uL MPV (7.4-10.4) fL Immature Gran # (Auto) (0.00-0.02) K/uL Neut # (Auto) (1.4-6.5) K/uL [place] # (Auto) (0.11-0.59) K/uL Sodium (136-145) mmol/L BUN (7-18) mg/dl BUN/Creatinine Ratio (10-20) Glucose (70-99) mg/dl POC Glucose 381 H* 435 H* 348 H (70-99) 10/02/18 10/02/18 10/02/18 Range/Units 08:05 08:14 08:14 WBC 16.13 H (4.8-10.8) K/uL MPV 12.2 H (7.4-10.4) fL Immature Gran # (Auto) 0.05 H (0.00-0.02) K/uL Neut # (Auto) 13.64 H (1.4-6.5) K/uL [place] # (Auto) 0.90 H (0.11-0.59) K/uL Sodium 135 L (136-145) mmol/L BUN 48 H (7-18) mg/dl BUN/Creatinine Ratio 35.4 H (10-20) Glucose 219 H (70-99) mg/dl POC Glucose 219 H (70-99) Medications Administered Current Inpatient Medications Albuterol (Duoneb) 3 ml NEB QIDR [facility] Stop: 10/30/18 15:59 Last Admin: 10/02/18 11:16 Dose: 3 ml Albuterol (Duoneb) 3 ml NEB Q4R PRN PRN Reason: sob Stop: 10/30/18 15:59 Alprazolam (Xanax) 0.5 mg PO BID [facility] Stop: 10/30/18 08:59 Last Admin: 10/02/18 08:30 Dose: 0.5 mg Aspirin (Ecotrin Ectab) 81 mg PO DAILY [facility] Stop: 10/30/18 08:59 Last Admin: 10/02/18 08:22 Dose: 81 mg Doxycycline Hyclate (Vibramycin) 100 mg PO BID [facility] Stop: 10/07/18 08:59 Last Admin: 10/02/18 08:22 Dose: 100 mg Enoxaparin Sodium (Lovenox) 30 mg SQ Q24H [facility] Stop: 10/30/18 08:59 Last Admin: 10/02/18 08:25 Dose: 30 mg Methylprednisolone 40 mg/ (Syringe) 0.64 mls @ 1.5 mls/min IV Q6H [facility] Stop: 10/30/18 15:59 Last Admin: 10/02/18 10:23 Dose: 1.5 mls/min Ibuprofen (Advil) 400 mg PO Q4H PRN PRN Reason: pain/fever Losartan Potassium (Cozaar) 25 mg PO QAM [facility] Stop: 10/30/18 08:59 Last Admin: 10/02/18 08:23 Dose: 25 mg Metoprolol Succinate (Toprol Xl) 25 mg PO NOW [facility] Stop: 10/30/18 00:10 Multivitamins (Multivitamin Tab) 1 tab PO DAILY [facility] Stop: 10/30/18 08:59 Last Admin: 10/02/18 08:23 Dose: 1 tab Multivitamins/Minerals (Multivitamin W/ Minerals Tab) 1 tab PO [facility] Stop: 10/30/18 08:59 Last Admin: 10/02/18 08:23 Dose: 1 tab Ondansetron HCl (Zofran) 4 mg IV Q6H PRN PRN Reason: Nausea Stop: 10/30/18 00:10 Pantoprazole Sodium (Protonix) 40 mg PO DAILY [facility] Stop: 10/30/18 08:59 Last Admin: 10/02/18 08:23 Dose: 40 mg Psyllium Hydrophilic Mucilloid (Metamucil) 1 pkt PO DAILY [facility] Stop: 10/30/18 08:59 Last Admin: 10/02/18 08:25 Dose: 1 pkt Tamsulosin HCl (Flomax) 0.4 mg PO DAILY [facility] Stop: 10/30/18 08:59 Last Admin: 10/02/18 08:23 Dose: 0.4 mg Resident Activity Tracking Resident Involvement: Resident Care Provided Care Provided: Adult Hospital Medicine _ (1) Pulmonary edema Chronicity: acute Qualified Code(s): J81.0 - Acute pulmonary edema
[2018-10-02] MEDS: INSULIN ASPART 100 UNITS/ML 3 ML PEN SC SCH (20:26)
[2018-10-02] MEDS ORDERED: INSULIN GLARGINE SOLOSTAR 100 UNITS/ML 3 ML PEN SC SCH (21:00)
[2018-10-02 23:55] VITALS: TEMP 97.9
[2018-10-03] MEDS ORDERED: methylPREDNISolone 40 MG in SYRINGE 0 ML IV SCH (04:00)
[2018-10-03 07:27] VITALS: BP 153/81
[2018-10-03] MEDS: ALBUT/IPRATROP 3MG/0.5MG NEB 3 ML VIAL NEB SCH ×2 (07:59→11:09)
[2018-10-03 08:10] LABS: BUN Creatinine Ratio 32.7 (10-20); Calcium 9.1 mg/dl (8.5-10.1); Creatinine Clr Calc Pharmacy 61.2 ml/min; Potassium 4.1 mmol/L (3.5-5.1)
[2018-10-03] MEDS: LOSARTAN POTASSIUM 25 MG TAB PO SCH (09:45)
[2018-10-03] MEDS: CEROVITE ADV FORMULA TAB PO SCH (09:45)
[2018-10-03] MEDS: PANTOprazole 40 MG TAB PO SCH (09:45)
[2018-10-03] MEDS: ENOXAPARIN INJ 30 MG/0.3 ML SYR SQ SCH (09:46)
[2018-10-03] MEDS: PSYLLIUM 58.6% POWDER PACKET PO SCH (09:46)
[2018-10-03] MEDS: ASPIRIN 81 MG ECTAB PO SCH (09:47)
[2018-10-03] MEDS: TAMSULOSIN HCL 0.4 MG CAP PO SCH (09:47)
[2018-10-03] MEDS: INSULIN ASPART 100 UNITS/ML 3 ML PEN SC SCH ×2 (09:50→13:39)
[2018-10-03] MEDS: DOXYCYCLINE HYCLATE 100 MG CAP PO SCH (09:51)
[2018-10-03] MEDS: ALPRAZolam 0.5 MG TABLET PO SCH (10:04)
[2018-10-03 11:11] VITALS: PULSE 70; O2SAT 92
[2018-10-03] MEDS ORDERED: FUROSEMIDE 20 MG in SYRINGE 0 ML IV STA (12:36)
--- NOTE | 2018-10-03 17:17 | Discharge Summary ---
Date of Service October 03, 2018 Admission HPI Per Admitting Provider 78-year-old male presents to the ED via EMS for progressively worsening shortness of breath beginning on September 24. Incidentally he says he was seen in the pulmonary clinic that day, diagnosed with bronchitis and sinusitis, and started on doxycycline. Over the next few days up until present his breathing is become progressively worse. He notes a cough productive of clearish mucus, shortness of breath particularly with exertion, questionable fever, and the feeling of being hot and cold. He says his chest feels more tight than normal but denies any chest pain. Denies any nausea or vomiting. Says he knows he has a heart history and had a pacemaker placed about 11 years ago. He denies any known underlying lung issues. Patient denies any other acute concerns. Past medical history includes anxiety, BPH, idiopathic cardiomegaly, dizziness, obesity, GERD, hyperlipidemia, irritable bowel syndrome, macular degeneration, sensorineural hearing loss, and tobacco abuse. Past surgical history includes pacemaker placement in 2007, bilateral cataract repair. Social history includes smoking cigars. Lives at home with family. Admission Exam Per Admitting Provider GENERAL: Awake, alert, well-appearing, has an approximate ask on but is speaking comfortably, does not appear in any acute distress (respiratory or otherwise). HENT: Normocephalic, atraumatic. Oropharynx normal. EYES: Normal conjunctiva. Sclera non-icteric. NECK: Inspection normal. Supple and full ROM. No nuchal rigidity. CARDIAC: +S1S2 RRR, no murmurs. Pacemaker in upper chest. RESPIRATORY: Diminished breath sounds throughout with rales at bases. Has oxymask in place. GI: +BS, soft, non-distended. No tenderness to palpation. No rebound or guarding. EXTREMITIES: No pedal edema or calf tenderness. Moving all extremities naturally and easily. NEURO: No gross neuro deficits. Lines: PIV. Principal Diagnosis COPD and CHF exacerbation in the setting of viral URI Discharge Exam General: pleasant, cooperative Neuro: alert and oriented x 4 CV: RRR, no m/r/g, no JVD Pulm: occasional rhonchi, no crackles or wheezing appreciated, equal breath sounds bilaterally, no respiratory distress, remains on RA Abdomen: +BS, NTTP in all quadrants, non-distended LE: no LE pitting edema, no calf tenderness to palpation Discharge Data Allergies Allergy/AdvReac Type Severity Reaction Status Date / Time No Known Allergies Allergy Mild NONE Verified 09/29/18 23:03 Consultations 09/29/18 21:02 ED Decision to Admit Stat Hospital Course (1) Shortness of breath: 78-year-old male was admitted on 29 September 2017 for progressive shortness of breath in the setting of likely viral URI vs. bronchitis exacerbating COPD and CHF. Shortness of breath, pulmonary edema: likely secondary to viral URI causing COPD and CHF exacerbation -Was progressively worsening since . Productive cough, chest tightness, f/ c. -Hx of extensive smoking 3-4 packs for 15 years (quit 30 yrs ago) and now 4-5 cigars/wk but denies hx of known pulmonary disease -initially febrile 38.1, tachypneic, requiring O2 -ESR and CRP elevated with normal WBC, neg influenza -Initial VBG: pH 7.33, CO2 52, bicarb 27 -Chest x-ray and exam suggests pulmonary congestion due to pulmonary edema -Hx of idiopathic cardiomyopathy and Mobitz type II AV block: Followed by Dr. Vanegas cardiology. Has pacemaker x 11 years -Echocardiogram March 2018: EF of 30-35%, LV SF is moderately reduced, moderate global hypokinesis of the left ventricle, and mild concentric LVH (no significant change from September 2016) -EKG notes rate of 106 with an atrial sensed ventricularly paced rhythm -Admit BNP 2637 -Received Lasix 40mg IV x 2 on day of admission with 1.8L diuresis since appeared euvolemic on exam however given 5lb weight gain on day of discharge from admit date given another 20mg IV lasix -Received doxycycline to complete 14 day course -Received solumedrol and was placed on prednisone taper course: 40mg x 2 days then 30mg x 2 days then 20mg x 2 days then 10mg x 2 days -Received kiara dudavidbs - Discharged with albuterol and spiriva inhalers -IS/flutter valve Concern for COPD -Hx of extensive smoking 3-4 packs for 15 years (quit 30 yrs ago) and now 4-5 cigars/wk but denies hx of known pulmonary disease -recommend outpt PFT and follow up, started on spiriva and albuterol inh prn Proteinuria: Per UA. Cr 1. Follow up outpt Ongoing medical issues: - Hypercholesterolemia: At home is on Lipitor. Continued here. - Hyperglycemia: Recent hemoglobin A1c 5.9%. Had elevated glucose 400s-500s in the setting of steroid use - Idiopathic cardiomyopathy and a history of a Mobitz type II AV block: Followed by Dr. Vanegas of cardiology as outpatient. At home is on metoprolol succinate ER 25 mg daily, losartan 25 mg daily, and aspirin. Continued here. - Urinary outlet obstruction, BPH: At home is on Flomax. Continued here. - Anxiety: At home is on Xanax. Continued here. - Irritable bowel syndrome and esophageal dysmotility: At home is on dicyclomine , Prilosec, and psyllium. Continued here. - Macular degeneration: Is on Ocuvite. Continued here. - Low back pain: Occasionally uses Advil. Continued here as needed. Code status: Full code DVT prophy: Lovenox Disbo: home with outpt PT (2) Pulmonary edema: (3) Cough: (4) Proteinuria: (5) Hypercholesterolemia: (6) Idiopathic cardiomyopathy: (7) BPH (benign prostatic hyperplasia): (8) Anxiety: (9) Irritable bowel syndrome: (10) Esophageal dysmotility: (11) Macular degeneration: (12) Low back pain: Total Time Total Time Spent Total Time Spent (In Minutes): >30 mins Discharge Plan Discharge Items Patient Disposition: Home - Self-Care Reason For Visit: SHORTNESS OF BREATH Discharge Diagnosis: COPD and CHF exacerbation Condition: Good Discharge Goals: Decrease discomfort, Diagnostic testing and Therapeutic intervention Activity: Resume your previous activity Non-emergency contact: Primary Care Provider Call non-emergency contact if: you have any medication questions, your symptoms worsen and your temperature is above 100.5 Follow-up/Referrals: Pardeep Abad MD [Primary Care Provider] - 10/11/18 3:30 pm (Please, follow up at Dr. Abad's office with his psych assistant, Magda Goddard PA-C , on ThursdayOctober 11 at 3:30 pm. *If you need to change this appointment, call the office at [phone].) Diet: Carb Consistent or DM2 and Low Sodium (2gm) Fluids: 2000ml (8 cups) Addtl Provider Instructions: Please take prednisone taper course prescribed 10mg pills: Take 40mg (4 pills) for 2 days 10/04-10/05 then 30mg (3 pills) for 2 days 10/06-10/07 then 20mg (2 pills ) for 2 days 10/08-10/09 then 10mg (1 pill) for 2 days 10/10-10/11 Please take remaining course of doxycycline antibiotic 100mg tonight and twice a day tomorrow Please use albuterol inahler provided 2 puffs as needed every 4-6 hours Continue using your flutter valve to help loosen and cough up mucous please follow up with your primary care doctor in 2-3 days Please complete physical therapy outpatient at [facility], our social workers will help you arrange that and we provided you with a script to take to them Prescriptions: New doxycycline hyclate 100 mg Capsule 100 mg PO BID Qty: 3 RF: 0 losartan 25 mg Tablet 25 mg PO QAM Qty: 30 RF: 0 albuterol sulfate 90 mcg/actuation HFA aerosol inhaler 1 inha INH Q4H PRN (Reason: shortness of breath or wheezing) Qty: 8 RF: 0 prednisone 10 mg tablet 10 mg PO DAILY Qty: 20 RF: 0 Continue alprazolam 0.5 mg Tablet 0.5 mg PO BID RF: 0 aspirin 81 mg Tablet,Delayed Release (Dr/Ec) 81 mg PO DAILY RF: 0 ibuprofen 400 mg Tablet 400 mg PO Q4H PRN (Reason: pain/fever) RF: 0 metoprolol succinate 25 mg Tablet Extended Release 24 Hr 25 mg PO NOW RF: 0 multivitamin Tablet 1 tab PO DAILY RF: 0 omeprazole 20 mg Tablet,Delayed Release (Dr/Ec) 20 mg PO DAILY RF: 0 psyllium husk [Metamucil] 3.4 gram/5.4 gram Powder 1 tbsp PO DAILY RF: 0 sildenafil [Viagra] 100 mg Tablet 100 mg PO DAILY PRN (Reason: prn) RF: 0 vit C,Q-Lb-jriyn-lutein-zeaxan [PreserVision AREDS-2] [id number] mg-unit-mg- mg Capsule 1 tab PO AMHS RF: 0 tamsulosin [Flomax] 0.4 mg Capsule 0.4 mg PO DAILY RF: 0 Visit Report Forms: My [facility] Stand-Alone Forms: My [facility] Discharge Orders: Discharge Order (Routine); Ordered 10/03/18 Ordered By: Triny Franco Admission Data Admit Date/Time: 09/29/18 23:20 Attending Provider: Emmanuel Duran Admit Provider: Alfonso Pop Primary Care Provider: Pardeep Abad Other Providers: Kiko Paez Service: Medical Other Interventions: Discharge Summary Assessment (RN) Last Done: 10/03/18 13:53 Pending Studies at Discharge: Yes Studies:: HgbA1c DC Date/Time DO NOT enter until pt leaves facility: 10/03/18 14:37 Supervising Physician Co-Signing Physician Notes I personally examined the patient and verified all cadet points of history and exam, discussed case, and agree with decision making with Dr Franco. Feeling better, as he is waiting on rehab placement, and that process is continuing to drag on, he is changed his mind and decided he wanted to go home. Dr. Franco and I discussed the case extensively with the patient and family and their plan seems reasonable, he has good safety awareness. He will do therapy as an outpatient. Vitals noted, in general he is awake alert oriented x3 pleasant no acute distress. Lungs unlabored no accessory muscle use good effort. Acute hypoxic respiratory failure, POAdue to below, this is improving. He is on room air and stable for home Febrile respiratory illnesshe does not have defined COPD but certainly this seems empirically consistent with a COPD exacerbation, finish outpatient treatment as ordered by Dr. Franco, outpatient PFTs in a month or 2. Acute on chronic systolic CHFthis appears to be precipitated by the metabolic stress from his COPD exacerbation. Stable for discharge. Could consider initiation of Entresto, but right now he does appear stable, outpatient follow- up DVT prophylaxisLovenox utilized during his stay Dispositionhe is weak, but his plan to go home seems reasonable, family is they are supportive and will be helping him, and he will be doing outpatient PT. Stable for home Resident Activity Tracking Resident Involvement: Resident Care Provided Care Provided: Adult Hospital Medicine
[2018-10-04 06:45] LABS: Estimated Average Glucose 140 mg/dl
== END 2018-10-03 14:37 | disposition home or self-care (01) | DRG 291 ==
LOC: ED 18:57 → 2S 23:20 → SUATTDRO 23:20 → 2S 23:30 → 4W 10-01 17:07